=== PATIENT | male | born 1950 | race Caucasian/White ===

== ENCOUNTER → 2019-02-27 09:25 | Outpatient (CLI) | payer MEDICARE, SELFPAY ==
--- NOTE | 2019-02-27 09:30 | CDU_ITS ---
Reason For Study: Numbness, Tingling Rt. Velocities/BP Lt. Velocities/BP Prox CCA 68.2/12.1 cm/sec. Prox CCA 147.7/22.6 cm/sec. Mid CCA 64.3/18.6 cm/sec. Mid CCA 119.2/31.4 cm/sec. Dist CCA 60.4/22.6 cm/sec. Dist CCA 58.1/16.3 cm/sec. Prox ICA 52.6/16 cm/sec. Prox ICA 54.4/16.3 cm/sec. Mid ICA 78.6/31.7 cm/sec. Mid ICA 66.7/24.9 cm/sec. Dist ICA 79.9/31.7 cm/sec. Dist ICA 61.8/22.5 cm/sec. Rt. ICA/CCA = 1.2. Lt. ICA/CCA = 0.6. Prox ECA 86.5/12.1 cm/sec. Prox ECA 91.9/24.3 cm/sec. Rt. Vert. 45.6/19.2 cm/sec. Lt. Vert. 36/14.2 cm/sec. Right Extracranial There is intimal thickening but no significant atherosclerotic plaque noted in the right common carotid artery. There is homogeneous, smooth atherosclerotic plaque noted in the right internal carotid artery. There is no significant atherosclerotic plaque noted in the right external carotid artery. Antegrade flow is noted in the right vertebral artery. Left Extracranial There is intimal thickening but no significant atherosclerotic plaque noted in the left common carotid artery. There is heterogeneous, irregular atherosclerotic plaque noted in the left internal carotid artery. There is intimal thickening but no significant atherosclerotic plaque noted in the left external carotid artery. Antegrade flow is noted in the left vertebral artery. Procedure Carotid Duplex [id number]. Exam performed in department. Interpretation Summary Mild (<50%) stenosis right extracranial internal carotid. Mild (<50%) stenosis left extracranial internal carotid. Flow within the vertebral arteries is antegrade bilaterally. Ordering Physician: Amy Epps Referring Physician: Amy Epps Performed By: Elenita Arias RVT
--- NOTE | 2019-02-27 10:23 | MRI_ITS ---
STUDY: MRI BRAIN WITHOUT CONTRAST REASON FOR EXAM: Male, 68 years old. left facial numbness TECHNIQUE: Standardized multiplanar fat and water weighted pulse sequences were obtained. COMPARISON: None. FINDINGS: Normal size of the ventricles and extra-axial spaces for the patient's age. There are a limited number of small white matter hyperintensities, distributed throughout the deep white matter tracts of the cerebral hemispheres, consistent with mild chronic white matter ischemic changes. Normal bilateral basal ganglia. Normal thalami. There is no extra-axial fluid accumulation. Normal flow voids within the major intracranial circulation suggesting patency by spin echo criteria. Normal sella turcica, pituitary gland, infundibular stalk, optic chiasm and hypothalamus. Normal tectal plate and pineal gland. Normal midbrain, kayla and medulla. Normal cerebellum. Normal basal cisterns. Normal bilateral temporal bones. Normal bilateral internal auditory canals. No demonstrated orbital abnormality, within the constraints of a routine brain study. There is complete opacification of the left frontal sinus and left anterior ethmoid air cells. Normal calvarium and skull base. Normal visualized soft tissue structures. Normal visualized upper cervical spine. MRI/Brain without Contrast IMPRESSION: No acute infarct. Complete opacification of the left frontal sinus and left anterior ethmoid air cells. Mild involutional changes of the brain, as described above. Electronically Signed: Americo Mehta, at 14:14 EST Tel , Service support ,
--- NOTE | 2019-02-27 10:23 | MRI_ITS ---
STUDY: MRA OF THE HEAD WITHOUT CONTRAST REASON FOR EXAM: Male, 68 years old. numbness/tingling L side of face TECHNIQUE: 3-D [id number] (TOF) imaging was performed with MIPs. The study was performed unenhanced. COMPARISON: MRI of the brain dated February 27, 2019 FINDINGS: Normal bilateral petrous carotid arteries. Normal right cavernous carotid artery with a normal supraclinoid bifurcation. Normal left cavernous carotid artery with a normal supraclinoid bifurcation. Normal right A1 segments of the anterior cerebral artery. Normal left A1 segments of the anterior cerebral artery. Normal intact anterior communicating artery (ACOM). Normal bilateral A2 segments of the anterior cerebral arteries. Normal right M1 and M2 segments of the middle cerebral arteries, with a normal M1 bifurcation. Normal left M1 and M2 segments of the middle cerebral arteries, with a normal M1 bifurcation. There is non-visualization of the right posterior communicating artery (PCOM). Normal left posterior communicating artery (PCOM). Normal bilateral vertebral arteries. Normal basilar artery with a normal basilar bifurcation. The visualized bilateral superior cerebellar (SCA) arteries are normal. Normal bilateral P1, P2 and visualized P3 segments of the posterior cerebral arteries. There is no demonstrated aneurysm of the [place]. There is no major vessel occlusion or hemodynamically significant stenosis. MRI/MRA Head ONLY without Contrast IMPRESSION: Negative MRA of the head Electronically Signed: Stevie Coy MD at 23:52 EST , Service support ,
== END ==
LOC: CVS 09:27
PROVIDERS: Family Provider Internal Medicine; PCP Internal Medicine; Referring Provider Internal Medicine; Visit Provider Internal Medicine
DX: R20.0 Anesthesia of skin (principal)
CPT/HCPCS: 70544; 70551; 93880

== ENCOUNTER 2020-04-16 19:21 | Emergency (ER) | payer MEDICARE, SELFPAY ==
[2020-04-16] VITALS (9 sets, daily range): BP systolic 128–152; BP diastolic 67–93; PULSE 77–90; RESP 14–23; TEMP 36.6–36.8; O2SAT 94–98; BMI 25.1; BMI 24.5
--- NOTE | 2020-04-16 19:51 | CT_ITS ---
We are attempting to reach an attending provider to discuss findings. An addendum with communication details will be sent when the communication is complete. HISTORY: Mandible surgery on 04/07/2020. Pain and swelling and fever. Comparison study is a carotid duplex ultrasound from February 27, 2019. Technique: Following the uneventful administration of 100 ML of Isovue-370 contiguous helical images were obtained from the ascending thoracic aorta through the [place]. 2-D reformats. 332 images. Findings: Sternal wires. Mediastinal clips. Right arm metallic lead likely PICC. Lung apices are clear. Bony alignment within the cervical spine demonstrates minimal degenerative malalignment. Vertebral body height is preserved. Multilevel degenerative disc disease. Facet arthropathy. Prevertebral and paraspinal soft tissues are normal. The mandible is intact. Dentition is poor. The thyroid, left submandibular gland, and left parotid gland are normal. The right submandibular gland is enlarged and hyperemic. The right parotid gland is hyperemic. Abscesses are present within the right face. Extending from the level of the right submandibular gland, cranially to the level of the uvula, there are abscesses on both superficial and deep sides of the mandible. The right tonsillar oropharynx and nasopharyngeal abscess measures 6.2 x 3.3 x 8.8 cm. There are loculations within this abscess. It displaces the nasopharyngeal airway, narrowing the nasopharyngeal airway. The epiglottis is not thickened, but it is deviated to the left due to the inflammation. Inflammatory changes generally anterior to the right common carotid and internal carotid artery. The abscesses displace branches of the right external carotid artery. No gas within the abscesses is yet perceived. Paranasal sinuses are clear. Mastoid air cells are free of disease. Orbits and globes are normal. Some adenopathy is present on the right. Flow is present within the aortic arch with some atherosclerotic plaque at the origin of the right brachiocephalic and left subclavian arteries. Flow is present throughout the right CCA, ICA, and ECA. Atherosclerotic plaque is present with both calcification and soft plaque at the left carotid bulb contributing to less than a 20% stenosis. The left ICA remains widely patent in the brain. Intracranially both ICAs give rise to ACAs and MCAs. There patent. Both vertebral arteries remain patent within the neck into the skull to form the basilar artery. The basilar artery remains patent to the posterior cerebral arteries. CT/Soft Tissue Neck WITH Contrast IMPRESSION: Inflammatory change within the right neck. Greater than 6.2 x 3.3 x 8.8 cm right neck abscess. Inflammatory change to the right submandibular gland as well as the right parotid gland with the abscesses extending from the subcutaneous tissues to the nasopharynx abutting the uvula and the epiglottis. The nasopharyngeal airway is displaced and narrowed due to this abscess. Individualized dose optimization techniques were used for this CT. at 2204 Reported and signed by: Chucho Bernstein MD Electronically Signed: Chucho Bernstein MD at 22:03 EST Tel , Service support ,
[2020-04-16] MEDS: Ondansetron 4 MG/2 ML Vial IV (20:12)
[2020-04-16] MEDS: Morphine 4 MG/ML Syringe IV (20:12)
[2020-04-16 20:26] LABS: Absolute Lymphocyte Count 0.74 X10^3/uL (0.83-4.51); Absolute Neutrophil Count 12.4 X10^3/uL (2.0-7.7); Basophil# 0.02 X10^3/uL; Basophil% 0.1 % (0-1); Hemoglobin 12.2 g/dL (13.0-16.5); Lymphocyte # 0.74 X10^3/ul (4.0); Lymphocyte % 5.3 % (19-41); Mean Corp Hgb Conc 33.9 g/dL (32-36); Mean Corpuscular Hgb 31.7 pg (27.0-32.0); Mean Corpuscular Volume 93.5 fL (80-94); Mean Platelet Vol. 9.6 fl (6.2-12.0); Monocyte# 0.81 X10^3/uL; Monocyte% 5.8 % (0-10); NRBC Flagged by Analyzer 0 % (0-5); Platelet Count 245 K/mm3 (150-450); RBC Distribution Width CV 13.2 % (11.6-14.6); RBC Distribution Width SD 45.3 fl (35.1-43.9); Red Blood Count 3.85 M/mm3 (4.6-6.2); White Blood Count 14.1 K/mm3 (4.4-11.0)
[2020-04-16 20:32] LABS: Bacteria 0 SEEN /hpf (None Seen); Mucous, Urine 0 SEEN /hpf (<or=2+); Squamous Epithelial Cells - UA 0 SEEN /hpf (0-5)
[2020-04-16 20:37] LABS: Color, Urine Amber (Yellow); Glucose, Dipstick Normal (Normal); Ketone-Dipstick 5 mg/dl (Negative); Leukocyte Esterase-Dipstick Negative /ul (Negative); Nitrite-Dipstick Negative (Negative); Occult Blood-Urine 10 /ul (Negative); Protein-Dipstick 30 mg/dl (Negative); Urine Bilirubin Dipstick Negative (Negative); Urine Clarity Clear (Clear); Urine Urobilinogen 4 mg/dl (Normal); Urine pH 6.5 (5.0 - 8.0)
[2020-04-16 20:44] LABS: International Normalized Ratio 1.1; Prothrombin Time (Protime)PT. 13.8 SECONDS (11.7-14.9)
[2020-04-16 20:46] LABS: Partial Thromboplast Time 40.5 Seconds (24.1-36.2)
[2020-04-16 20:47] LABS: Red Blood Cells-Urine 0-5 SEEN /hpf (0-5); White Blood Cells 0-5 SEEN /hpf (0-5)
[2020-04-16] MEDS: Ceftriaxone 1 GM/50 ML BAG IV (20:49)
[2020-04-16 20:52] LABS: ALB/GLOB Ratio 0.5 RATIO (0.9-2.4); AST(SGOT) 63 U/L (15-37); Alanine Aminotransfer ALT/SGPT 82 U/L (16-61); Albumin, Serum 2.4 g/dL (3.2-5.0); Alkaline Phosphatase 384 U/L (45-117); Anion Gap 7 (5-15); BUN 8 mg/dL (7-18); BUN/Creat Ratio 10.7 RATIO (10-20); Calcium,Total 8.3 mg/dL (8.5-10.1); Chloride 97 mmol/L (98-107); Creatinine, Serum 0.75 mg/dL (0.70-1.30); EST Glomerular Filtration Rate 109 mL/min (>60); Est Glom Filt Rate - Afr Amer 132 mL/min (>60); Estimated Creatinine Clearance 68.74 ml/min; Globulin 4.8 g/dL (2.2-4.2); Glucose 114 mg/dL (74-106); Potassium 3.8 mmol/L (3.5-5.1); Protein, Total 7.2 g/dL (6.4-8.2); Sodium Level 130 mmol/L (136-145)
[2020-04-16 20:53] LABS: Lactic Acid 1.2 mmol/L (0.4-1.9)
--- NOTE | 2020-04-16 21:15 | ED.DCSUM_ITS ---
- ER Visit Summary Date of Service: 04/16/20 Chief Complaint: Fever History of Present Illness: The patient is a [address] Juares. He had a tooth pulled from the right side of his mandible 9 days ago at the [facility] by Dr. Ferrari for an abscess. He was discharged on clindamycin. He reports that he just developed a fever today at 4 PM. He also reports that he has had swelling to the right side of his mandible again. He was able to eat yesterday and over the past few hours the pain is gotten worse and the swelling has gotten worse. Patient describes a sharp pain is 10 of 10 at worst and 7-10 currently. Is worsened by eating or even opening his mouth. Is relieved by nothing. He had a fever to 101.9 degrees and chills. Patient complains he has chest pain that began tonight. It was 4-10 at worst and is pain-free currently. This lasted a few minutes. Physical Examination: Vitals: Stable. Afebrile. General: Well-nourished and well-developed. Head: Normocephalic atraumatic. Dental: Significant swelling of the right mandible that is tender to palpation. There is no erythema or palpable abscess externally. Patient has trismus and I am unable to visualize intraorally at all. I cannot tell which tooth a pulled or if there is an abscess that is amenable to drainage. Neck: Supple, no lymphadenopathy. No JVD. Cardiovascular: Regular rate and rhythm. No murmurs. Respiratory: No respiratory distress. Clear to auscultation bilaterally. Abdominal: Soft, nontender, nondistended, normal bowel sounds. No guarding, rebound, or peritoneal signs. Back: Nontender. Extremities: Nontender, no edema. Skin: Normal color, no rash. Neurologic: Alert and oriented ?3. Cranial nerves II through XII are intact. Normal strength and sensation. Psych: Normal affect. Test Results: CBC shows a white count of 14.1 with an H&H of 12.2 and 36.0, 7 neutrophils 80, lymphocytes 5. Chem-7 shows a sodium 130, chloride 97, glucose 114, calcium of 8.3. LFTs show a total bili of 1.9 with an alk phos of 384, ALT of 82, AST of 63, albumin 2.4, globulin 4.8. PTT is 40.5. Troponin is negative. Lactic acid is 1.2. UA is negative. Clinical Impression(s) from Imaging Studies Soft Tissue Neck CT 04/16/20 19:51 IMPRESSION: Inflammatory change within the right neck. Greater than 6.2 x 3.3 x 8.8 cm right neck abscess. Inflammatory change to the right submandibular gland as well as the right parotid gland with the abscesses extending from the subcutaneous tissues to the nasopharynx abutting the uvula and the epiglottis. The nasopharyngeal airway is displaced and narrowed due to this abscess. Individualized dose optimization techniques were used for this CT. at 2204 Reported and signed by: Chucho Bernstein MD Electronically Signed: Chucho Bernstein MD at 22:03 EST Tel , Service support , Chest X-Ray 04/16/20 21:20 IMPRESSION: No acute cardiopulmonary disease. at 2137 Reported and signed by: Chucho Bernstein MD Electronically Signed: Chucho Bernstein MD at 21:36 EST Tel , Service support , Emergency Department Course and Treatment: Patient had an IV placed. Is given morphine and Zofran IV. He is resting more comfortably. Has been on clindamycin through a PICC line as an outpatient. He is allergic to penicillin. Is given Rocephin and Flagyl IV. He is resting more comfortably. The patient was discussed with Dr. Syed. Unfortunately he is out of town. The patient was discussed with Dr. Christianson, and medical doctor nuclear medicine at [facility], who is concerned about transferring the patient with an unstable airway. This is a legitimate concern and unfortunately there is no possibility of air transport due to weather. The patient is not a candidate for intubation in the emergency department. He has trismus only allowing him to open his mouth approximately 1 cm. The patient was discussed with Dr. James Melgoza and Dr. Roman. He will be taken to the operating room for intubation. He was nasotracheal intubated without difficulty. On arrival back to emergency department the patient is resting comfortably. He was started on a fentanyl and propofol drip. Treatment Plan: Ultimately the patient needs to be transferred to [facility] for further treatment of this abscess and had this drained there 9 days ago. He will come back up to the emergency department when his airway is controlled and will be sedated here. I spoke with Dr. Christianson again and he is excepted the patient. However, the [facility] is at high census. Because of this I contacted [facility]. They do not have any beds. I contacted [facility]. They do not have any beds. Disposition: Pending Impression: 1. Right mandibular abscess. 2. Rakesh's angina. 3. Critical care time 33 minutes. 4. Intubation by ENT in operating room. This note was generated with [employer] dictation software. It may contain incorrect words, spelling, and punctuation that were not noted in review of the chart prior to signing ED Disposition - Plan for ED Patient: Referrals: Alison Pelletier MD [Primary Care Provider] -
--- NOTE | 2020-04-16 21:20 | RAD_ITS ---
HISTORY: FEVER OF 89, Tquot;MORE LETHARGICTquot; PER SISTER. MANDIBLE SURGERY 04/07, NOW HAVING TROUBLE SWALLOWING EXAM: XR Chest 1 View: COMPARISON: None FINDINGS: # of images incl. paperwork: 1 Peripherally inserted right central venous catheter terminates superimposed over the anticipated location of the SVC, near the level of the right main bronchus. Sternal wires and mediastinal clips. Pulmonary hypoexpansion. No focal airspace disease is perceived Heart is not enlarged. No acute osseous pathology perceived. Pulmonary vascularity is distinct. No effusions. RAD/Chest 1 View (Portable) IMPRESSION: No acute cardiopulmonary disease. at 2137 Reported and signed by: Chucho Bernstein MD Electronically Signed: Chucho Bernstein MD at 21:36 EST Tel , Service support ,
[2020-04-16] MEDS: metroNIDAZOLE 500 MG/100 ML BAG 100 MG IV (21:43)
[2020-04-16] MEDS: Lidocaine 4% 5 ML Ampul 1 ML INHALATION (23:25)
[2020-04-16] MEDS: Lidocaine 4% 50 ML Bottle (23:58)
[2020-04-17] VITALS (9 sets, daily range): BP systolic 137–146; BP diastolic 84–103; PULSE 74–110; RESP 12–16; TEMP 36.7–36.8; O2SAT 99–100
--- NOTE | 2020-04-17 00:21 | OP.PCM_ITS ---
Report of Operation Date of Procedure: 04/17/20 Pre-Operative Diagnosis: upper airway obstruction. deep neck space abscess. trismus Post-Operative Diagnosis: same Surgery/Procedure Performed:: Awake fiberoptic nasotracheal intubation Type of Anesthesia:: Local MAC Anesthesiologist: Sommer Roman Estimated Blood Loss (mL): none Description of Procedure: Patient was taken to the operating room on 04/17/2020. He was given a 4% lidocaine nebulizer. Next, the left nostril was decongested with Afrin nasal spray. I then placed Codman's in his nose with topical 4% lidocaine. Once the nose was numb I serially dilated his left nasal cavity with nasal trumpets. Next I passed a fiberoptic scope through the nose. There was significant obstruction at the level of the oropharynx. I was able to sneak by this obstruction down to the level of the epiglottis where there was no obstruction. I then placed the scope through the cords and into the trachea. This was confi rmed by visualizing tracheal rings and the analilia. I then passed the endotracheal tube over the fiberoptic scope and into the trachea. Position was confirmed with the scope. The scope was then removed. The patient was then given propofol by anesthesia and he was hooked to the circuit. Immediate CO2 was visualized on the monitor. The tube was secured to the nose. He was then removed from the operating room brought back to the emergency room in stable condition blood loss none replacement none. Sponge and instrument count were correct at the end of the procedure.
[2020-04-17] MEDS: Propofol 10MG/Ml 1,000 MG/100 ML Bottle 4.5 MG CONT INF (00:45)
--- NOTE | 2020-04-17 00:55 | ED.RN ---
AT 0030 PT AGITATED WHEN STIMULATED. FENTANYL DRIP INITIATED AND SOFT BILATERAL WRIST RESTRAINTS APPLIED.
[2020-04-17 01:50] LABS: Base Excess 1 mmol/L (-2 to +2); Bicarbonate 25.6 mmol/L (22-26); Blood Gas Specimen Type ART; FI02 30; Mode AC; O2 Delivery Device Adult Vent; PEEP 5; PO2 91 mmHG (75-100); RR 14; SITE R Brach; SO2 97 % (95-99); Total Carbon Dioxide 27 mmol/L; Vt 450; pCO2 41.3 mmHg (35-45)
== END 2020-04-17 02:20 | disposition short-term general hospital (02) ==
PROVIDERS: Emergency Medicine; Otolaryngology; Emergency Provider Emergency Medicine; PCP Internal Medicine
PROC: (CPT 31500; principal; 2020-04-16 23:00)
DX: K12.2 Cellulitis and abscess of mouth (principal); M27.2 Inflammatory conditions of jaws; J98.8 Other specified respiratory disorders; I10 Essential (primary) hypertension; I25.10 Atherosclerotic heart disease of native coronary artery without angina pectoris; E78.00 Pure hypercholesterolemia, unspecified; Z86.73 Personal history of transient ischemic attack (TIA), and cerebral infarction without residual deficits; Z95.1 Presence of aortocoronary bypass graft; Z79.82 Long term (current) use of aspirin; Z79.899 Other long term (current) drug therapy
CPT/HCPCS: 31500; 31720; 36592; 36600; 51702; 70491; 71045; 80053; 81001; 82803; 83605; 84484; 85025; 85610; 85730; 87040; 87077; 87086; 87426; 94002; 94640; 96361; 96365; 96366; 96367; 96368; 96374; 96375; 99285; J7030; J7040; J7120; Q9967; A4216; J2405; J3010

== ENCOUNTER 2020-11-12 11:09 | Inpatient (IN) | payer MEDICARE, SELFPAY ==
[2020-04-16 22:27] VITALS: BMI 24.5
[2020-11-12] VITALS (16 sets, daily range): BP systolic 127–145; BP diastolic 62–101; PULSE 65–81; RESP 15–24; TEMP 36.4–37.2; O2SAT 88–97; BMI 24.2
--- NOTE | 2020-11-12 11:30 | RAD_ITS ---
EXAM DESCRIPTION: PORTABLE AP CHEST CLINICAL HISTORY: 69 years Male, sob sob COMPARISON: Previous chest obtained on 04/16/2020 FINDINGS: Sternotomy sutures are noted in place. The thorax is intact. The heart and mediastinum appear to be within normal limits. The lungs appear to be well areated without evidence of pneumonic consolidation or pleural effusion. RAD/Chest 1 View (Portable) IMPRESSION: No acute pathology. Electronically Signed: Joseph Stokes DO at 12:04 EDT Tel , Service support ,
--- NOTE | 2020-11-12 11:30 | EKG12_ITS ---
Test Reason : Blood Pressure : / mmHG Vent. Rate : 076 BPM Atrial Rate : 076 BPM P-R Int : 172 ms QRS Dur : 080 ms QT Int : 386 ms P-R-T Axes : 049 -07 034 degrees QTc Int : 434 ms Normal sinus rhythm with sinus arrhythmia Septal infarct , age undetermined Nonspecific T wave abnormality Abnormal ECG Confirmed by MANJU MACK, KARLA ([id number]), digital editor JASON NELSON ([id number]) on 11/16/2020 8:58:41 AM Referred By: ROSA Confirmed By:KARLA NUNES MD
--- NOTE | 2020-11-12 11:32 | ED.VIS.DYS ---
HPI History of Present Illness Chief Complaint: Shortness of Breath Informant: patient Onset/Context/Timing Onset: Days (2) Context: gradual Timing: Continuous Quality: Positive for - (sob) Current Severity: Moderate Maximum Severity: Moderate Worsened by: Coughing Relieved by: Nothing Associated Symptoms cough Chest Pain: Positive for Pressure and Tightness Narrative Narrative: 69-year-old male 2 days gradual onset cough, shortness of breath, chest tightness and pressure, 1 bout of diarrhea yesterday, myalgias, subjective fevers and chills at home earlier but does not feel like he has it now, no leg pain or swelling or orthopnea. No palpitations or near syncope/syncope. He had a CABG 20 years ago, he has been taking aspirin since, denies any other antiplatelet or anticoagulant medications. No history of DVT or PE. No history of Covid, and he was vaccinated several months ago. No known contact with anyone sick that he knows of, nor with Covid that he knows of. Patient states that several months ago, he was admitted at [facility] for about 5 weeks because of a dental abscess that went to his brain and his heart. He no longer is on antibiotics. [facility] Medical History (Updated 11/12/20 @ 15:[address] Stewart Lawrence MD) CAD (coronary artery disease) HTN (hypertension) Hyperlipidemia Home Medications aspirin 81 mg PO DAILY 04/16/20 [History Last Taken 11/12/20] omeprazole 20 mg PO DAILY 04/16/20 [History Last Taken 11/12/20] albuterol sulfate 2 puff INHALATION Q4H PRN 11/12/20 [History Last Taken 11/11/20] amlodipine 5 mg PO DAILY 11/12/20 [History Last Taken 11/11/20] dextromethorphan-guaifenesin [Coricidin HBP Chest Trevor-Cough] 2 tab-cap PO Q6H PRN 11/12/20 [History Last Taken 11/11/20] metoprolol tartrate 25 mg PO BID 11/12/20 [History Last Taken 11/12/20] Allergy/AdvReac Type Severity Reaction Status Date / Time Sulfa (Sulfonamide Allergy Rash Verified 11/12/20 11:09 Antibiotics) Surgical History History of cholecystectomy Hx of CABG Social History Smoking Status: Never smoker ROS ROS ED Constitutional Constitutional ED: Reports body ache(s), chills, fever(s) and malaise Eyes Eyes: Denies change in vision or diplopia ENT ENT ED: Denies rhinorrhea or sore throat Cardiovascular Cardiovascular: Reports as per HPI and chest pain; Denies palpitations Respiratory/Chest Respiratory/Chest: Reports as per HPI, cough and dyspnea Gastrointestinal Gastrointestinal: Reports diarrhea and other Details: Diffuse abdominal soreness with coughing only. Vomited once yesterday after taking some cough medication. Otherwise no nausea today. Genitourinary Genitourinary ED: Denies dysuria or hematuria Musculoskeletal Musculoskeletal: Reports myalgias; Denies back pain or neck pain Integumentary Denies abscess or rash Neurologic Neurologic: Denies headache(s), paresthesias or weakness Psychiatric Psychiatric: Denies anxiety or suicidal thoughts EXAM Physical Exam Const Vital Signs: 11/12/20 11:10 11/12/20 11:22 11/12/20 11:29 Temperature 97.5 F L 97.5 F L Temperature Source Temporal Temporal Pulse Rate 77 72 Respiratory Rate 19 H 24 H Respiratory Effort Labored Accessory Muscle Use Respiratory Depth Normal Respiratory Pattern Normal Blood Pressure 142/101 H 145/85 H Blood Pressure Mean 114 105 Pulse Ox 95 94 Oxygen Delivery Method Room Air Room Air Room Air 11/12/20 11:45 11/12/20 12:06 11/12/20 12:15 Temperature 97.5 F L 98.7 F Temperature Source Temporal Oral Pulse Rate 79 81 Respiratory Rate 20 H 22 H Respiratory Effort Respiratory Depth Respiratory Pattern Normal Blood Pressure 134/93 H Blood Pressure Mean 106 Pulse Ox 96 96 Oxygen Delivery Method Room Air Room Air 11/12/20 13:16 11/12/20 14:33 11/12/20 15:00 Temperature 98.2 F Temperature Source Oral Pulse Rate 73 74 80 Respiratory Rate 15 16 16 Respiratory Effort Respiratory Depth Respiratory Pattern Blood Pressure 137/77 H 134/90 H Blood Pressure Mean 97 104 Pulse Ox 93 95 94 Oxygen Delivery Method Room Air Room Air Positive well nourished and well developed General Appearance ED: well developed and NAD HEENT Reports moist mucous membranes normocephalic and atraumatic Eyes PERRL and EOMs intact bilaterally Neck full ROM and supple Resp normal respiratory effort and clear to auscultation bilaterally Resp Narrative: Transmitted upper airway sounds, clear after coughing with clear lungs afterwards. Mildly tachypneic. Cardio regular rate, regular rhythm and no murmurs Rate: Negative for tachycardic GI non-tender and non-distended Auscultation: normoactive bowel sounds Palpation: soft Back/Spine no CVA tenderness General Back: other FROM Extremity normal to inspection, no calf tenderness and no pedal edema General Extremety ED: Negative for edema, pulses abnormal or tenderness General Extremity: Negative for edema or pulses abnormal Neuro oriented x3, CN's II-XII intact bilaterally and no sensory deficits noted Sensorium / Orientation: awake and alert Motor Exam: strength 5/5 throughout Skin no rashes or lesions noted and no wounds MDM MDM MDM Narrative Medical decision making narrative: Patient felt better after albuterol/duo nebulizer treatment, however was hypoxic with just getting out of bed; he was 88% on room air upon standing up, and then with a few steps he was at 85% on room air became very dyspneic. His work-up shows a leukocytosis but he has a normal lactate and a normal chest x-ray. EKG and high-sensitivity troponin are unremarkable. Concern is for infection here given his symptoms, he was vaccinated against Covid and his rapid is negative, D-dimer was obtained because his normal chest x-ray and hypoxemia, it was significantly elevated so he was sent for CT angiography which showed no infiltrate or pulmonary embolus. My concern again is for lower respiratory tract infection, so he will be started on antibiotics and admitted since he is having an oxygen requirement. Lab Data Attestation: I reviewed the patient's lab results. Labs: Laboratory Results - last 24 hr 11/12/20 11/12/20 11/12/20 11:32 11:32 11:32 WBC 15.7 H RBC 4.83 Hgb 15.0 Hct 45.7 MCV 94.6 H MCH 31.1 MCHC 32.8 RDW Std Deviation 47.1 H RDW Coeff of Domitila 13.5 Plt Count 148 L MPV 10.0 Immature Gran % (Auto) 0.600 Neut % (Auto) 88.4 H Lymph % (Auto) 5.9 L [place] % (Auto) 4.7 Eos % (Auto) 0.1 Baso % (Auto) 0.3 Absolute Neuts (auto) 13.9 H Absolute Lymphs (auto) 0.92 Nucleated RBC % 0 D-Dimer Quant (PE/DVT) Sodium 138 Potassium 4.1 Chloride 105 Carbon Dioxide 25.0 Anion Gap 8 BUN 11 Creatinine 0.86 Estim Creat Clear Calc 79.93 Est GFR (MDRD) Af Amer 113 Est GFR (MDRD) Non-Af 93 BUN/Creatinine Ratio 12.8 Glucose 139 H Lactic Acid 1.8 Calcium 9.1 Total Bilirubin 2.00 H AST 21 ALT 24 Alkaline Phosphatase 125 H Troponin I High Sens 8.2 Total Protein 8.2 Albumin 4.1 Globulin 4.1 Albumin/Globulin Ratio 1.0 Urine Color Urine Clarity Urine pH Ur Specific [place] Urine Protein Urine Glucose (UA) Urine Ketones Urine Occult Blood Urine Nitrite Urine Bilirubin Urine Urobilinogen Ur Leukocyte Esterase Urine RBC Urine WBC Ur Squamous Epith Cells Urine Bacteria Urine Mucus 11/12/20 11/12/20 12:55 14:05 WBC RBC Hgb Hct MCV MCH MCHC RDW Std Deviation RDW Coeff of Domitila Plt Count MPV Immature Gran % (Auto) Neut % (Auto) Lymph % (Auto) [place] % (Auto) Eos % (Auto) Baso % (Auto) Absolute Neuts (auto) Absolute Lymphs (auto) Nucleated RBC % D-Dimer Quant (PE/DVT) 1.52 H* Sodium Potassium Chloride Carbon Dioxide Anion Gap BUN Creatinine Estim Creat Clear Calc Est GFR (MDRD) Af Amer Est GFR (MDRD) Non-Af BUN/Creatinine Ratio Glucose Lactic Acid Calcium Total Bilirubin AST ALT Alkaline Phosphatase Troponin I High Sens Total Protein Albumin Globulin Albumin/Globulin Ratio Urine Color Yellow Urine Clarity Clear Urine pH 6.0 Ur Specific [place] 1.010 Urine Protein Negative Urine Glucose (UA) Normal Urine Ketones 5 H Urine Occult Blood 10 H Urine Nitrite Negative Urine Bilirubin Negative Urine Urobilinogen Normal Ur Leukocyte Esterase Negative Urine RBC 0 SEEN Urine WBC 0 SEEN Ur Squamous Epith Cells 0 SEEN Urine Bacteria 0 SEEN Urine Mucus 0 SEEN Radiography Chest X-Ray - ED: 1 View, Read by ED Physician and No Acute Disease Diagnostic Testing: Radiology Impression Chest X-Ray 11/12/20 11:30 IMPRESSION: No acute pathology. Electronically Signed: Joseph Stokes DO at 12:04 EDT Tel , Service support , Chest CTA 11/12/20 14:45 IMPRESSION: Normal CTA chest examination, without a demonstrated pulmonary embolism or arterial dissection. Electronically Signed: Héctor Whatley MD at 15:34 EDT Tel , Service support , EKG Initial EKG: Attestation: I personally reviewed and interpreted this EKG as follows: Interpretation: No Acute Injury Pattern and Sinus Arrythmia Discharge Plan Dx/Rx/DC Orders Clinical Impression: Acute lower respiratory tract infection, Hypoxemia Disposition Disposition: Acute Care [facility]
[2020-11-12 11:48] LABS: Absolute Lymphocyte Count 0.92 X10^3/uL (0.83-4.51); Absolute Neutrophil Count 13.9 X10^3/uL (2.0-7.7); Basophil# 0.05 X10^3/uL; Basophil% 0.3 % (0-1); Eosinophil# 0.01 X10^3/uL; Eosinophils% 0.1 % (0-5); Hematocrit 45.7 % (40-54); Lymphocyte # 0.92 X10^3/ul (0.83-4.51); Lymphocyte % 5.9 % (19-41); Mean Corp Hgb Conc 32.8 g/dL (32-36); Mean Corpuscular Hgb 31.1 pg (27.0-32.0); Mean Corpuscular Volume 94.6 fL (80-94); Monocyte# 0.74 X10^3/uL; Monocyte% 4.7 % (0-10); NRBC Flagged by Analyzer 0 % (0-5); Neutrophil # 13.86 X10^3/uL (2.7-7.7); Neutrophil % 88.4 % (47-70); Platelet Count 148 K/mm3 (150-450); RBC Distribution Width CV 13.5 % (11.6-14.6); RBC Distribution Width SD 47.1 fl (35.1-43.9); Red Blood Count 4.83 M/mm3 (4.6-6.2); White Blood Count 15.7 K/mm3 (4.4-11.0)
[2020-11-12] MEDS: Albuterol 2.5 MG/3 ML VIAL.NEB. INHALATION ×2 (12:06→23:43)
[2020-11-12 12:16] LABS: AST(SGOT) 21 U/L (15-37); Alanine Aminotransfer ALT/SGPT 24 U/L (16-61); Albumin, Serum 4.1 g/dL (3.2-5.0); Alkaline Phosphatase 125 U/L (45-117); Anion Gap 8 (5-15); BUN 11 mg/dL (7-18); BUN/Creat Ratio 12.8 RATIO (10-20); Calcium,Total 9.1 mg/dL (8.5-10.1); Chloride 105 mmol/L (98-107); Creatinine, Serum 0.86 mg/dL (0.70-1.30); EST Glomerular Filtration Rate 93 mL/min (>60); Est Glom Filt Rate - Afr Amer 113 mL/min (>60); Estimated Creatinine Clearance 79.93 ml/min; Globulin 4.1 g/dL (2.2-4.2); Glucose 139 mg/dL (74-106); Potassium 4.1 mmol/L (3.5-5.1); Protein, Total 8.2 g/dL (6.4-8.2); Sodium Level 138 mmol/L (136-145); Troponin-I HS 8.2 pg/mL (3.0-78.5)
[2020-11-12 12:17] LABS: Lactic Acid 1.8 mmol/L (0.4-1.9)
[2020-11-12 13:00] LABS: Bacteria 0 SEEN /hpf (None Seen); Mucous, Urine 0 SEEN /hpf (<or=2+); Red Blood Cells-Urine 0 SEEN /hpf (0-5); Squamous Epithelial Cells - UA 0 SEEN /hpf (0-5); White Blood Cells 0 SEEN /hpf (0-5)
[2020-11-12 13:01] LABS: Color, Urine Yellow (Yellow); Glucose, Dipstick Normal (Normal); Ketone-Dipstick 5 mg/dl (Negative); Leukocyte Esterase-Dipstick Negative /ul (Negative); Nitrite-Dipstick Negative (Negative); Occult Blood-Urine 10 /ul (Negative); Protein-Dipstick Negative (Negative); Urine Bilirubin Dipstick Negative (Negative); Urine Clarity Clear (Clear); Urine Urobilinogen Normal (Normal)
[2020-11-12 14:25] LABS: D-Dimer Quantitative (DVT/PE) 1.52 FEU/ug/m (0.27-0.49)
--- NOTE | 2020-11-12 14:45 | CT_ITS ---
STUDY: CTA CHEST REASON FOR EXAM: Male, 69 years old. elevated d-dimer, sob RADIATION DOSAGE (If Supplied By Facility): CTDIvol = ( 10.62 ) mGy, DLP = ( 391.43 ) mGycm TECHNIQUE: The examination was performed with the intravenous administration of IV 100mL Isovue-370. Post-processing of the angiographic images was performed, with multiplanar reformation and 3D reconstruction. Individualized dose optimization techniques were used for this CT. COMPARISON: Chest x-ray earlier today FINDINGS: Status post median sternotomy. Normal enhancement of the main pulmonary artery and right and left pulmonary arteries. Normal enhancement of the bilateral peripheral pulmonary arteries. There is no demonstrated pulmonary embolism. Normal thoracic aorta and visualized great vessels. There is no demonstrated aortic dissection. Normal heart and pericardium. Normal mediastinum. Normal hilar regions. Normal visualized trachea and bronchi. The lungs are well expanded. Normal pulmonary parenchyma. Normal pleura. Normal chest wall structures. Normal osseous structures. Normal visualized upper abdomen. CT/CTA Chest W/WO Contrast IMPRESSION: Normal CTA chest examination, without a demonstrated pulmonary embolism or arterial dissection. Electronically Signed: Héctor Whatley MD at 15:34 EDT Tel , Service support ,
--- NOTE | 2020-11-12 16:53 | PCM.HP.STD ---
HPI - General General Date of Admission: 11/12/20 HPI Narrative IZZY DU, is a 69 M who presents cough, shortness of breath, fever, chills or malaise of few days duration. He denies any sick contacts or any recent travel. Admits to having chest pressure, exertional dyspnea and easy fatigability. Denies any chest pain per se. Admits to having some myalgias and arthralgias. Had some nausea and a few episodes of vomiting. Received 2 doses of the Pfizer vaccine and Covid testing today was negative. Chest x-ray done was also normal and CT angiogram of the chest was normal as well and without any pulmonary infiltrates. [facility] Medical History (Updated 11/12/20 @ 16:[address] Yas Red MD) CAD (coronary artery disease) Dental abscess HTN (hypertension) Hyperlipidemia Home Medications aspirin 81 mg PO DAILY 04/16/20 [History Last Taken 11/12/20] omeprazole 20 mg PO DAILY 04/16/20 [History Last Taken 11/12/20] albuterol sulfate 2 puff INHALATION Q4H PRN 11/12/20 [History Last Taken 11/11/20] amlodipine 5 mg PO DAILY 11/12/20 [History Last Taken 11/11/20] dextromethorphan-guaifenesin [Coricidin HBP Chest Trevor-Cough] 2 tab-cap PO Q6H PRN 11/12/20 [History Last Taken 11/11/20] metoprolol tartrate 25 mg PO BID 11/12/20 [History Last Taken 11/12/20] Allergy/AdvReac Type Severity Reaction Status Date / Time Sulfa (Sulfonamide Allergy Rash Verified 11/12/20 11:09 Antibiotics) Surgical History History of cholecystectomy Hx of CABG Social History Smoking Status: Never smoker ROS ROS Narrative Admitted to having nausea and vomiting. Denied having any diarrhea. No abdominal pain. All other systems reviewed and essentially negative. Vital Signs Vital Signs Vital Signs: 11/12/20 11:10 11/12/20 11:22 11/12/20 11:29 Temperature 36.4 C L 36.4 C L Temperature Source Temporal Temporal Pulse Rate 77 72 Respiratory Rate 19 H 24 H Respiratory Effort Labored Accessory Muscle Use Respiratory Depth Normal Respiratory Pattern Normal Blood Pressure 142/101 H 145/85 H Blood Pressure Mean 114 105 Pulse Ox 95 94 Oxygen Delivery Method Room Air Room Air Room Air 11/12/20 11:45 11/12/20 12:06 11/12/20 12:15 Temperature 36.4 C L 37.1 C Temperature Source Temporal Oral Pulse Rate 79 81 Respiratory Rate 20 H 22 H Respiratory Effort Respiratory Depth Respiratory Pattern Normal Blood Pressure 134/93 H Blood Pressure Mean 106 Pulse Ox 96 96 Oxygen Delivery Method Room Air Room Air 11/12/20 13:16 11/12/20 14:33 11/12/20 15:00 Temperature 36.8 C Temperature Source Oral Pulse Rate 73 74 80 Respiratory Rate 15 16 16 Respiratory Effort Respiratory Depth Respiratory Pattern Blood Pressure 137/77 H 134/90 H Blood Pressure Mean 97 104 Pulse Ox 93 95 94 Oxygen Delivery Method Room Air Room Air 11/12/20 16:33 Temperature 37.2 C Temperature Source Oral Pulse Rate 79 Respiratory Rate 17 Respiratory Effort Respiratory Depth Respiratory Pattern Blood Pressure 127/72 H Blood Pressure Mean 90 Pulse Ox Oxygen Delivery Method Room Air Weight Weight: 74.5 kg Body Mass Index (BMI) 24.2 Physical Exam Const alert and oriented x3 Constitutional Narrative: Mildly ill-appearing, not not dyspneic at rest General Appearance: cooperative and well kempt Orientation / Consciousness: awake, oriented to person, oriented to place and oriented to time Exam Limitations: no limitations HEENT normocephalic, head/scalp atraumatic and hearing grossly normal bilaterally Head and Scalp: normal to inspection, normocephalic and atraumatic Face and Sinus: normal facial exam Eyes PERRL General Eye: normal appearance of both eyes Neck full ROM Chest Chest: abnormal inspection of the chest and symmetrical chest wall rise Resp normal respiratory effort and normal air movement Effort and Inspection: able to speak in complete sentences Cardio regular rate, regular rhythm and no JVD GI normal to inspection, nondistended, normoactive bowel sounds, soft to palpation and non-tender Palpation: soft Extremity normal to inspection and full ROM General Extremity: normal exam except as noted Skin no rashes or lesions noted and no wounds Neuro oriented x3, CN's II-XII intact bilaterally and moves all extremities Sensorium / Orientation: awake, alert, oriented to person, oriented to place and oriented to time Cranial Nerves: CN normal except as noted Speech: speech normal Psych mental status grossly normal Results Lab / Micro Data Result Diagrams: 11/12/20 11:32 11/12/20 11:32 Labs: Laboratory Results - last 24 hr 11/12/20 11:32: WBC 15.7 H, RBC 4.83, Hgb 15.0, Hct 45.7, MCV 94.6 H, MCH 31.1, MCHC 32.8, RDW Std Deviation 47.1 H, RDW Coeff of Domitila 13.5, Plt Count 148 L, MPV 10.0, Immature Gran % (Auto) 0.600, Neut % (Auto) 88.4 H, Lymph % (Auto) 5.9 L, [place] % (Auto) 4.7, Eos % (Auto) 0.1, Baso % (Auto) 0.3, Absolute Neuts (auto) 13.9 H, Absolute Lymphs (auto) 0.92, Nucleated RBC % 0 11/12/20 11:32: Sodium 138, Potassium 4.1, Chloride 105, Carbon Dioxide 25.0, Anion Gap 8, BUN 11, Creatinine 0.86, Estim Creat Clear Calc 79.93, Est GFR (MDRD) Af Amer 113, Est GFR (MDRD) Non-Af 93, BUN/Creatinine Ratio 12.8, Glucose 139 H, Calcium 9.1, Total Bilirubin 2.00 H, AST 21, ALT 24, Alkaline Phosphatase 125 H, Troponin I High Sens 8.2, Total Protein 8.2, Albumin 4.1, Globulin 4.1, Albumin/Globulin Ratio 1.0 11/12/20 11:32: Lactic Acid 1.8 11/12/20 12:55: Urine Color Yellow, Urine Clarity Clear, Urine pH 6.0, Ur Specific [place] 1.010, Urine Protein Negative, Urine Glucose (UA) Normal, Urine Ketones 5 H, Urine Occult Blood 10 H, Urine Nitrite Negative, Urine Bilirubin Negative, Urine Urobilinogen Normal, Ur Leukocyte Esterase Negative, Urine RBC 0 SEEN, Urine WBC 0 SEEN, Ur Squamous Epith Cells 0 SEEN, Urine Bacteria 0 SEEN, Urine Mucus 0 SEEN 11/12/20 14:05: D-Dimer Quant (PE/DVT) 1.52 H* Micro: Microbiology 08/06/21 11:15 Mucosa - Nose SARS-CoV-2 Antigen (Rapid) - Final Radiology Impression Chest X-Ray 11/12/20 11:30 IMPRESSION: No acute pathology. Electronically Signed: Joseph Stokes DO at 12:04 EDT Tel , Service support , Chest CTA 11/12/20 14:45 IMPRESSION: Normal CTA chest examination, without a demonstrated pulmonary embolism or arterial dissection. Electronically Signed: Héctor Whatley MD at 15:34 EDT Tel , Service support , Assessment & Plan Assessment/Plan (1) Acute lower respiratory tract infection: PLAN: Assessment and plan 1. Lower respiratory tract infection. Chest x-ray and CT scan of the chest normal. COVID-19 negative. Suspect possible acute bacterial bronchitis. Possible viral etiology. Will treat empirically with IV antibiotics. 2. Acute hypoxic respiratory failure. Likely secondary to #1 above. Patient complained of orthopnea. Will check BNP. If elevated will get an echocardiogram. Charges/Coding Visit Charges Inpatient E&M: 34680 Init Hosp L2
[2020-11-12] MEDS: Ondansetron 4 MG/2 ML Vial IV (16:55)
[2020-11-12] MEDS: Acetaminophen 325 MG Tablet 650 MG PO (17:44)
[2020-11-12 18:03] LABS: BNP,B-Type NATRIURETIC PEPTIDE 204.7 pg/mL (0-100)
[2020-11-12] MEDS: Metoprolol Tartrate 25 MG Tablet PO (22:44)
[2020-11-13] VITALS (9 sets, daily range): BP systolic 115–140; BP diastolic 68–82; PULSE 57–72; RESP 12–20; TEMP 36.6–36.8; O2SAT 95–97
[2020-11-13] MEDS: guaiFENesin 600 MG Tablet PO ×2 (00:10→20:29)
[2020-11-13] MEDS: Acetaminophen 325 MG Tablet 650 MG PO (04:32)
[2020-11-13 07:08] LABS: Absolute Lymphocyte Count 0.91 X10^3/uL (0.83-4.51); Absolute Neutrophil Count 3.5 X10^3/uL (2.0-7.7); Basophil# 0.03 X10^3/uL; Basophil% 0.6 % (0-1); Eosinophil# 0.13 X10^3/uL; Eosinophils% 2.5 % (0-5); Hematocrit 40.4 % (40-54); Hemoglobin 12.9 g/dL (13.0-16.5); Lymphocyte # 0.91 X10^3/ul (0.83-4.51); Lymphocyte % 17.7 % (19-41); Mean Corp Hgb Conc 31.9 g/dL (32-36); Mean Corpuscular Hgb 30.9 pg (27.0-32.0); Mean Corpuscular Volume 96.7 fL (80-94); Monocyte# 0.51 X10^3/uL; Monocyte% 9.9 % (0-10); NRBC Flagged by Analyzer 0 % (0-5); Neutrophil # 3.54 X10^3/uL (2.7-7.7); Neutrophil % 68.9 % (47-70); Platelet Count 109 K/mm3 (150-450); RBC Distribution Width CV 13.8 % (11.6-14.6); RBC Distribution Width SD 49.1 fl (35.1-43.9); Red Blood Count 4.18 M/mm3 (4.6-6.2); White Blood Count 5.1 K/mm3 (4.4-11.0)
[2020-11-13 07:28] LABS: ALB/GLOB Ratio 1.1 RATIO (0.9-2.4); AST(SGOT) 38 U/L (15-37); Alanine Aminotransfer ALT/SGPT 28 U/L (16-61); Albumin, Serum 3.4 g/dL (3.2-5.0); Alkaline Phosphatase 108 U/L (45-117); Anion Gap 4 (5-15); BUN 8 mg/dL (7-18); BUN/Creat Ratio 10.6 RATIO (10-20); Calcium,Total 8.2 mg/dL (8.5-10.1); Chloride 109 mmol/L (98-107); Creatinine, Serum 0.76 mg/dL (0.70-1.30); EST Glomerular Filtration Rate 108 mL/min (>60); Est Glom Filt Rate - Afr Amer 131 mL/min (>60); Estimated Creatinine Clearance 68.74 ml/min; Globulin 3.2 g/dL (2.2-4.2); Glucose 113 mg/dL (74-106); Potassium 4.4 mmol/L (3.5-5.1); Protein, Total 6.6 g/dL (6.4-8.2); Sodium Level 140 mmol/L (136-145)
[2020-11-13] MEDS: Aspirin 81 MG TAB.CHEW PO (07:39)
--- NOTE | 2020-11-13 08:07 | ECHOD_ITS ---
Reason For Study: DYSPNEA Procedure This was a 2D Doppler, Color Flow transthoracic echocardiogram. Exam performed portable in patient room. Left Ventricle Normal left ventricle. The estimated ejection fraction is EF 55-60 %. Right Ventricle Normal right ventricle. Atria The left atrium is moderately enlarged. The right atrium is mildly enlarged. Mitral Valve The mitral valve is structurally normal. No prolapse or stenosis seen. Mild (1+) mitral valve insufficiency. Tricuspid Valve Mild focal calcification of the tricuspid valve. Mild tricuspid valve insufficiency. Aortic Valve Aortic sclerosis, no stenosis. Trivial aortic valve insufficiency. Pulmonic Valve The pulmonic valve is not well visualized. Great Vessels Mildly dilated aortic root. Pericardium/Pleural No pericardial effusion. MMode/2D Measurements & Calculations LVIDd: 4.4 cm IVSd: 1.1 cm Ao root diam: 4.1 cm LVIDs: 2.9 cm LVPWd: 0.83 cm RVDd: 4.2 cm FS: 34.3 % LAV(MOD-bp): 52.7 ml LVAd ap4: 22.5 cm2 LVAd ap2: 28.4 cm2 LAV(MOD-bp) Indexed: 27.8 ml/m2 LVLd ap4: 7.4 cm LVLd ap2: 8.0 cm LAV(MOD-sp2): 70.3 ml EDV(MOD-sp4): 57.0 ml EDV(MOD-sp2): 84.3 ml LAV(MOD-sp4): 37.2 ml EDV(sp4-el): 58.0 ml EDV(sp2-el): 86.1 ml LVAs ap4: 11.8 cm2 LVAs ap2: 15.0 cm2 LVLs ap4: 5.9 cm LVLs ap2: 6.4 cm ESV(MOD-sp4): 23.6 ml ESV(MOD-sp2): 29.4 ml ESV(sp4-el): 20.1 ml ESV(sp2-el): 29.7 ml EF(MOD-sp4): 58.6 % EF(MOD-sp2): 65.1 % EF(sp4-el): 65.4 % SV(MOD-sp4): 33.4 ml SV(MOD-sp2): 54.8 ml SV(sp4-el): 38.0 ml LA dimension(2D): 4.4 cm LA A4 area: 14.9 cm2 RA A4 area: 12.7 cm2 Time Measurements MV dec time: 0.23 sec Doppler Measurements & Calculations MV E max darren: 72.5 cm/sec Lat Peak E' Darren: 16.5 cm/sec Med Peak E' Darren: 5.6 cm/sec MV A max darren: 90.7 cm/sec E/E' lat: 4.4 E/E' med: 12.9 MV E/A: 0.80 Ao V2 max: 168.7 cm/sec LV V1 max: 146.6 cm/sec PA V2 max: 157.5 cm/sec Ao max P.4 mmHg LV V1 max P.6 mmHg TR max darren: 247.9 cm/sec TR max P.6 mmHg ECHO/Echo Complete Interpretation Summary The estimated ejection fraction is EF 55-60 %. Grade # I Diastolic Dysfunction Ordering Physician: Dejon Stiles Referring Physician: YU TENA Performed By: Digna Aguila, CHARLIECS, RVT
[2020-11-13] MEDS: Albuterol 2.5 MG/3 ML VIAL.NEB. INHALATION ×2 (09:13→19:15)
[2020-11-13] MEDS: amLODIPine 5 MG Tablet PO (10:44)
[2020-11-13] MEDS: Enoxaparin 40 MG/0.4 ML Syringe SC (10:44)
[2020-11-13] MEDS: Pantoprazole Sodium 20 MG Tablet PO (10:44)
--- NOTE | 2020-11-13 11:58 | CASEMGMT ---
KAROLINA STRONG Assessment: Face to Face with pt for initial transition planning/care coordination assessment. KAROLINA STRONG introduced self and role at [facility], pt voices understanding and consents to assessment. Pt is A/O x4 and answers all questions appropriately at this time. Pt sitting up in chair on RA in no distress. Care providers, pharmacy, and demographics verified/updated. 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 but is unsure of the name and has not seen yet. JUAN ANTONIO Renee Preferred Pharmacy: [facility] Retail Insurance: [employer] Prescription Benefit: yes LW/HPOA: Pt states he has a LW/DPOA. His DPOA is his sister Annie Lazo. He is aware that it is not on file at [facility] and he may bring in to be scanned to his chart. LNOK: Annie Lazo, sister Living Arrangements: Pt lives in a two story house with no steps to enter. Pt states he is I in ADL's and denies concerns at home. Transportation: Pt does not drive by choice for the last 3 years. His family transports him to medical appts and he denies concerns with transportation. DME/HHC/SNF: Pt has a cane and grab bars in the tub. Pt has had a HHC agency from [place] in the past but is unsure of the name. He also has been in [facility] in [place]. Pt states no concerns with going home at time of dc. Pt denies need for any HHC services. 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 He states he leads a very active life. Pt states no further concerns/needs. CM to follow. Advised pt to ask CM if any further question/concerns/needs arise, voices understanding. Pt Goal: Home Plan: Home
--- NOTE | 2020-11-13 12:07 | PN_ITS ---
Documented by User: Jo Nye NP-C 11/13/20 12:17 Subjective Subjective Patient seen and examined. Patient states he is feeling moderately better today however he continues to complain of a severe harsh cough. Patient states his shortness of breath has resolved other than after a harsh coughing fit. Patient states that he is coughing up thin mucus. Patient denies fever chills chest pain. Objective Data Objective Data Vital Signs: Vital Signs Temp Pulse Resp BP Pulse Ox 98.1 F 58 L 12 115/74 95 11/13/20 07:28 11/13/20 10:44 11/13/20 09:14 11/13/20 07:28 11/13/20 07:34 Oxygen Delivery Method Room Air Weight: 164 lb 3.91 oz Body Mass Index (BMI) 24.2 Intake & Output: Intake and Output for Last 24 Hours 11/11/20 11/12/20 11/13/20 23:59 23:59 23:59 Intake Total 1455 / 1455 1240 / 1240 Balance 1455 / 1455 1240 / 1240 Lab / Micro Data Result Diagrams: 11/14/20 04:39 11/13/20 06:52 Labs: Laboratory Results - last 24 hr 11/12/20 11:32: Sodium 138, Potassium 4.1, Chloride 105, Carbon Dioxide 25.0, Anion Gap 8, BUN 11, Creatinine 0.86, Estim Creat Clear Calc 79.93, Est GFR (MDRD) Af Amer 113, Est GFR (MDRD) Non-Af 93, BUN/Creatinine Ratio 12.8, Glucose 139 H, Calcium 9.1, Total Bilirubin 2.00 H, AST 21, ALT 24, Alkaline Phosphatase 125 H, Troponin I High Sens 8.2, Total Protein 8.2, Albumin 4.1, Globulin 4.1, Albumin/Globulin Ratio 1.0 11/12/20 11:32: Lactic Acid 1.8 11/12/20 12:55: Urine Color Yellow, Urine Clarity Clear, Urine pH 6.0, Ur Specific [place] 1.010, Urine Protein Negative, Urine Glucose (UA) Normal, Urine Ketones 5 H, Urine Occult Blood 10 H, Urine Nitrite Negative, Urine Bilirubin Negative, Urine Urobilinogen Normal, Ur Leukocyte Esterase Negative, Urine RBC 0 SEEN, Urine WBC 0 SEEN, Ur Squamous Epith Cells 0 SEEN, Urine Bacteria 0 SEEN, Urine Mucus 0 SEEN 11/12/20 14:05: D-Dimer Quant (PE/DVT) 1.52 H* 11/12/20 17:08: B-Natriuretic Peptide 204.7 H 11/13/20 06:52: Sodium 140, Potassium 4.4, Chloride 109 H, Carbon Dioxide 27.0, Anion Gap 4 L, BUN 8, Creatinine 0.76, Estim Creat Clear Calc 68.74, Est GFR (MDRD) Af Amer 131, Est GFR (MDRD) Non-Af 108, BUN/Creatinine Ratio 10.6, Glucose 113 H, Calcium 8.2 L, Total Bilirubin 0.80, AST 38 H, ALT 28, Alkaline Phosphatase 108, Total Protein 6.6, Albumin 3.4, Globulin 3.2, Albumin/Globulin Ratio 1.1 11/13/20 06:54: WBC 5.1, RBC 4.18 L, Hgb 12.9 L, Hct 40.4, MCV 96.7 H, MCH 30.9, MCHC 31.9 L, RDW Std Deviation 49.1 H, RDW Coeff of Domitila 13.8, Plt Count 109 L, MPV 10.0, Immature Gran % (Auto) 0.400, Neut % (Auto) 68.9, Lymph % (Auto) 17.7 L, [place] % (Auto) 9.9, Eos % (Auto) 2.5, Baso % (Auto) 0.6, Absolute Neuts (auto) 3.5, Absolute Lymphs (auto) 0.91, Nucleated RBC % 0 Micro: Microbiology 11/12/20 12:55 Urine, Clean Catch Urine Culture - Preliminary Culture exhibits no growth. 11/12/20 11:15 Mucosa - Nose SARS-CoV-2 Antigen (Rapid) - Final Radiography Diagnostic Testing: Radiology Impression Chest CTA 11/12/20 14:45 IMPRESSION: Normal CTA chest examination, without a demonstrated pulmonary embolism or arterial dissection. Electronically Signed: Héctor Whatley MD at 15:34 EDT Tel , Service support , Echocardiogram 11/13/20 08:07 Interpretation Summary The estimated ejection fraction is EF 55-60 %. Grade # I Diastolic Dysfunction Ordering Physician: Dejon Stiles Referring Physician: YU TENA Performed By: Digna Aguila, CHARLIECS, RVT Physical Exam Const alert and oriented x3 General Appearance: cooperative HEENT normocephalic and head/scalp atraumatic Eyes conjunctivae normal and no scleral icterus Neck supple and no JVD General: trachea midline Resp normal respiratory effort and normal air movement Auscultation: wheezes expiratory wheezes and throughout Cardio regular rate, regular rhythm, S1 normal heart sound and S2 normal heart sound Rate: bradycardia GI normal to inspection, nondistended, normoactive bowel sounds, soft to palpation and non-tender Extremity normal capillary refill and no clubbing, cyanosis or edema General Extremity: no tenderness to palpation of joints or extremities Skin General Skin Exam: no breakdown and turgor normal Lesions: no lesions Rashes: no rashes Neuro no focal motor deficits and no sensory deficits noted Speech: speech normal Gait (Neuro): normal gait Psych thought process normal, cooperative and affect normal Appearance: appropriate Assessment & Plan Assessment/Plan (1) Acute lower respiratory tract infection: PLAN: 1. Lower respiratory tract infection. -CXR and CT scan of chest normal. -COVID-19 negative. -Due to improvement with antibiotics most likely a bacterial source. Continue ceftriaxone -Continue as needed albuterol nebulizer treatments, Mucinex p.o. Tessalon Perles as needed added due to patient's continued harsh productive cough. -Encourage patient to use incentive spirometry and ambulate as able 2. Acute hypoxic respiratory failure. -Resolved, patient currently on room air pulse ox 94 to 97%. -BNP mildly elevated at 204.7, echocardiogram shows EF 55 to 60% with grade 1 diastolic dysfunction. 3. Hypertension -Stable -Will continue home medication regimen DVT prophylaxis-subcu Lovenox. This patient was seen by RITA Ronquillo under the supervision of Dr. Sitles. Documented by User: Dr. Dejon Stiles MD 11/14/20 12:44 Objective Data Lab / Micro Data Result Diagrams: 11/14/20 04:39 11/13/20 06:52 Charges/Coding Addendum Addendum: Dr. Stiles: I personally reviewed the chart and examined the patient, and agree with the above findings. 69-year-old male presents to the hospital with shortness of kae ath and a cough. CT of the chest was unremarkable, his Covid testing was negative. He was felt that he could have bronchitis therefore started on IV antibiotics as well as treated breathing treatments. Feels slightly better than when he came in today, but still not back to baseline. His BNP was elevated therefore an echo was obtained and pending. Visit Charges Inpatient E&M: 08795 Subs Hosp L2
[2020-11-13] MEDS: Metoprolol Tartrate 25 MG Tablet PO (20:27)
[2020-11-14] VITALS (11 sets, daily range): BP systolic 122–143; BP diastolic 73–78; PULSE 55–71; RESP 12–20; TEMP 36.7–36.9; O2SAT 92–98
[2020-11-14] MEDS: Albuterol 2.5 MG/3 ML VIAL.NEB. INHALATION ×4 (00:35→21:40)
[2020-11-14 06:27] LABS: Absolute Lymphocyte Count 2.02 X10^3/uL (0.83-4.51); Absolute Neutrophil Count 3.1 X10^3/uL (2.0-7.7); Basophil# 0.05 X10^3/uL; Basophil% 0.8 % (0-1); Eosinophil# 0.14 X10^3/uL; Eosinophils% 2.3 % (0-5); Hematocrit 40.7 % (40-54); Hemoglobin 13.3 g/dL (13.0-16.5); Lymphocyte # 2.02 X10^3/ul (0.83-4.51); Mean Corp Hgb Conc 32.7 g/dL (32-36); Mean Corpuscular Hgb 31.4 pg (27.0-32.0); Mean Platelet Vol. 10.5 fl (6.2-12.0); Monocyte# 0.75 X10^3/uL; Monocyte% 12.2 % (0-10); NRBC Flagged by Analyzer 0 % (0-5); Neutrophil # 3.14 X10^3/uL (2.7-7.7); Neutrophil % 51.2 % (47-70); Platelet Count 109 K/mm3 (150-450); RBC Distribution Width CV 13.9 % (11.6-14.6); RBC Distribution Width SD 49.2 fl (35.1-43.9); Red Blood Count 4.24 M/mm3 (4.6-6.2); White Blood Count 6.1 K/mm3 (4.4-11.0)
[2020-11-14] MEDS: Metoprolol Tartrate 25 MG Tablet PO ×2 (09:00→21:20)
[2020-11-14] MEDS: Enoxaparin 40 MG/0.4 ML Syringe SC (09:01)
[2020-11-14] MEDS: amLODIPine 5 MG Tablet PO (09:01)
[2020-11-14] MEDS: Aspirin 81 MG TAB.CHEW PO (09:01)
[2020-11-14] MEDS: Pantoprazole Sodium 20 MG Tablet PO (09:01)
--- NOTE | 2020-11-14 11:40 | PCM.PN.HOSP ---
Documented by User: Joseph HITCHCOCK 11/14/20 11:52 Subjective Subjective Patient is a 69-year-old male comfortably resting in bed, alert and orient x3. Patient endorses some yellow/green purulent sputum production and mild cough, denies chest pain, shortness of breath, palpitations, hemoptysis, fever, chills, N/V/D. Objective Data Objective Data Vital Signs: Vital Signs Temp Pulse Resp BP Pulse Ox 98.4 F 71 12 140/74 H 95 11/14/20 08:49 11/14/20 10:08 11/14/20 10:08 11/14/20 08:49 11/14/20 08:49 Oxygen Delivery Method Room Air Weight: 164 lb 3.91 oz Body Mass Index (BMI) 24.2 Intake & Output: Intake and Output for Last 24 Hours 11/12/20 11/13/20 11/14/20 23:59 23:59 23:59 Intake Total 1455 / 1455 2890 / 2890 50 / 50 Balance 1455 / 1455 2890 / 2890 50 / 50 Lab / Micro Data Result Diagrams: 11/14/20 04:39 11/13/20 06:52 Labs: Laboratory Results - last 24 hr 11/14/20 04:39: WBC 6.1, RBC 4.24 L, Hgb 13.3, Hct 40.7, MCV 96.0 H, MCH 31.4, MCHC 32.7, RDW Std Deviation 49.2 H, RDW Coeff of Domitila 13.9, Plt Count 109 L, MPV 10.5, Immature Gran % (Auto) 0.500, Neut % (Auto) 51.2, Lymph % (Auto) 33.0, [place] % (Auto) 12.2 H, Eos % (Auto) 2.3, Baso % (Auto) 0.8, Absolute Neuts (auto) 3.1, Absolute Lymphs (auto) 2.02, Nucleated RBC % 0 Micro: Microbiology 11/12/20 12:55 Urine, Clean Catch Urine Culture - Final Culture exhibits no growth. 11/12/20 11:52 Blood Culture (Wb) - Anticubital Left Blood Culture - Preliminary No growth in 48 hours. 11/12/20 11:32 Blood Culture (Wb) - Anticubital Right Blood Culture - Preliminary No growth in 48 hours. 11/12/20 11:15 Mucosa - Nose SARS-CoV-2 Antigen (Rapid) - Final Physical Exam Const alert, oriented x3 and no apparent distress HEENT head/scalp atraumatic and moist oral mucous membranes Head and Scalp: normocephalic Eyes EOMs intact bilaterally and conjunctivae normal Neck no lymphadenopathy, supple and no JVD Resp normal respiratory effort, no retractions and no use of accessory muscles Cardio regular rate, regular rhythm, no murmurs and no JVD GI normal to inspection, nondistended, normoactive bowel sounds and soft to palpation Extremity normal to inspection, full ROM and no clubbing, cyanosis or edema Skin no rashes or lesions noted, no wounds and skin turgor normal Neuro CN's II-XII intact bilaterally Psych affect normal Assessment & Plan Assessment/Plan (1) Acute lower respiratory tract infection: (2) Hypoxemia: PLAN: Day 3: See subjective. Discharge planning: Patient to be discharged home, no additional home health care or therapy needs identified. 1) acute hypoxic respiratory failure secondary to acute lower respiratory infection Currently satting 95% on room air. Chest x-ray and CT of the chest unremarkable. Echocardiogram completed on 11/17 demonstrated an estimated EF of 55 to 60% and grade 1 diastolic dysfunction. Rapid Covid negative. Blood and urine cultures demonstrate no growth. Patient still endorses mild cough with some yellow/green sputum production, although feels improved from admission. Plan; continue Rocephin and azithromycin, albuterol as needed, Mucinex as needed, Tessalon Perles as needed. 2) HTN Stable, continue home BP regimen. DVT prophylaxis - Lovenox Patient seen by Joseph Teran PA-C, under the supervision of Dr. Stiles. Documented by User: Dr. Dejon Stiles MD 11/14/20 12:51 Objective Data Lab / Micro Data Result Diagrams: 11/14/20 04:39 11/13/20 06:52 Physical Exam Resp Auscultation: rhonchi and wheezes Charges/Coding Addendum Addendum: Dr. Stiles: I personally reviewed the chart and examined the patient, and agree with the above findings. 69-year-old male presents to the hospital with shortness of breath and a cough. CT of the chest was unremarkable, his Covid testing was negative. He was felt that he could have bronchitis therefore started on IV antibiotics as well as treated breathing treatments. Feels slightly better than when he came in today, but still not back to baseline. His BNP was elevated therefore an echo was obtained and pending. 11/14/2020: Feels better today than he did yesterday, still has some short of breath and now he is coughing up thick mucus. Is little bit hesitant to go home today and would like to stay 1 more day to see if the continued antibiotics and breathing treatments help. Echo yesterday was unremarkable. Visit Charges Inpatient E&M: 59438 Subs Hosp L2
--- NOTE | 2020-11-14 14:03 | NURSING ---
Patient ambulated around unit with no 02 and pulse ox ranged from 94-96% .
[2020-11-14] MEDS: guaiFENesin 600 MG Tablet PO ×2 (17:44→21:20)
[2020-11-14] MEDS: Cefdinir 300 MG Capsule PO (21:20)
[2020-11-14] MEDS: MELATONIN 3 MG TABLET PO (23:01)
[2020-11-15] VITALS (12 sets, daily range): BP systolic 120–130; BP diastolic 73–83; PULSE 57–85; RESP 16–18; TEMP 36.4–36.8; O2SAT 91–97
[2020-11-15 07:08] LABS: Absolute Lymphocyte Count 1.97 X10^3/uL (0.83-4.51); Absolute Neutrophil Count 3.1 X10^3/uL (2.0-7.7); Basophil# 0.04 X10^3/uL; Basophil% 0.7 % (0-1); Eosinophils% 3.5 % (0-5); Hematocrit 44.4 % (40-54); Hemoglobin 14.6 g/dL (13.0-16.5); Lymphocyte # 1.97 X10^3/ul (0.83-4.51); Lymphocyte % 34.2 % (19-41); Mean Corp Hgb Conc 32.9 g/dL (32-36); Mean Corpuscular Hgb 31.3 pg (27.0-32.0); Mean Corpuscular Volume 95.1 fL (80-94); Mean Platelet Vol. 9.8 fl (6.2-12.0); Monocyte% 6.9 % (0-10); NRBC Flagged by Analyzer 0 % (0-5); Neutrophil # 3.11 X10^3/uL (2.7-7.7); Platelet Count 130 K/mm3 (150-450); RBC Distribution Width CV 13.8 % (11.6-14.6); RBC Distribution Width SD 48.5 fl (35.1-43.9); Red Blood Count 4.67 M/mm3 (4.6-6.2); White Blood Count 5.8 K/mm3 (4.4-11.0)
[2020-11-15] MEDS: Albuterol 2.5 MG/3 ML VIAL.NEB. INHALATION ×3 (07:28→19:24)
[2020-11-15 07:32] LABS: Anion Gap 7 (5-15); BUN 15 mg/dL (7-18); BUN/Creat Ratio 20.9 RATIO (10-20); Calcium,Total 8.9 mg/dL (8.5-10.1); Chloride 105 mmol/L (98-107); Creatinine, Serum 0.72 mg/dL (0.70-1.30); EST Glomerular Filtration Rate 115 mL/min (>60); Est Glom Filt Rate - Afr Amer 139 mL/min (>60); Estimated Creatinine Clearance 68.74 ml/min; Glucose 102 mg/dL (74-106); Sodium Level 139 mmol/L (136-145)
[2020-11-15] MEDS: Aspirin 81 MG TAB.CHEW PO (08:39)
[2020-11-15] MEDS: Metoprolol Tartrate 25 MG Tablet PO ×2 (08:39→21:34)
[2020-11-15] MEDS: amLODIPine 5 MG Tablet PO (08:40)
[2020-11-15] MEDS: Enoxaparin 40 MG/0.4 ML Syringe SC (08:40)
[2020-11-15] MEDS: Pantoprazole Sodium 20 MG Tablet PO (08:40)
[2020-11-15] MEDS: Cefdinir 300 MG Capsule PO ×2 (08:42→21:34)
[2020-11-15] MEDS: guaiFENesin 600 MG Tablet PO ×2 (08:43→21:44)
[2020-11-15] MEDS: Acetaminophen 325 MG Tablet 650 MG PO ×3 (08:43→21:44)
[2020-11-15] MEDS: Azithromycin 250 MG Tablet 500 MG PO (08:43)
[2020-11-15] MEDS: Menthol/Lanolin/Calamine/Znox 113 GM Tube 1 APPLIC TOPICAL ×2 (11:06→22:18)
[2020-11-15] MEDS: 0.9% Saline Lock 10 ML Syringe IV ×2 (11:07→14:43)
--- NOTE | 2020-11-15 12:51 | PCM.PN.HOSP ---
Documented by User: Joseph HITCHCOCK 11/15/20 12:59 Subjective Subjective Patient is a 69-year-old male comfortably resting in bed, alert and orient x3. Patient still complains of ongoing shortness of breath with minimal movement, although reports this has improved from admission. Patient also endorses continuing to cough thick yellow sputum. Denies chest pain, palpitations, hemoptysis, fever, chills, N/V/D. Objective Data Objective Data Vital Signs: Vital Signs Temp Pulse Resp BP Pulse Ox 98 F 58 L 16 121/73 H 97 11/15/20 12:08 11/15/20 12:08 11/15/20 12:08 11/15/20 12:08 11/15/20 12:08 Oxygen Delivery Method Room Air Weight: 164 lb 3.91 oz Body Mass Index (BMI) 24.2 Intake & Output: Intake and Output for Last 24 Hours 11/13/20 11/14/20 11/15/20 23:59 23:59 23:59 Intake Total 2890 / 2890 1705 / 1705 350 / 350 Balance 2890 / 2890 1705 / 1705 350 / 350 Lab / Micro Data Result Diagrams: 11/15/20 06:54 11/15/20 06:54 Labs: Laboratory Results - last 24 hr 11/15/20 06:54: WBC 5.8, RBC 4.67, Hgb 14.6, Hct 44.4, MCV 95.1 H, MCH 31.3, MCHC 32.9, RDW Std Deviation 48.5 H, RDW Coeff of Domitila 13.8, Plt Count 130 L, MPV 9.8, Immature Gran % (Auto) 0.700, Neut % (Auto) 54.0, Lymph % (Auto) 34.2, [place] % (Auto) 6.9, Eos % (Auto) 3.5, Baso % (Auto) 0.7, Absolute Neuts (auto) 3.1, Absolute Lymphs (auto) 1.97, Nucleated RBC % 0 11/15/20 06:54: Sodium 139, Potassium 4.0, Chloride 105, Carbon Dioxide 27.0, Anion Gap 7, BUN 15, Creatinine 0.72, Estim Creat Clear Calc 68.74, Est GFR (MDRD) Af Amer 139, Est GFR (MDRD) Non-Af 115, BUN/Creatinine Ratio 20.9 H, Glucose 102, Calcium 8.9 Micro: Microbiology 11/12/20 12:55 Urine, Clean Catch Urine Culture - Final Culture exhibits no growth. 11/12/20 11:52 Blood Culture (Wb) - Anticubital Left Blood Culture - Preliminary No growth in 48 hours. 11/12/20 11:32 Blood Culture (Wb) - Anticubital Right Blood Culture - Preliminary No growth in 48 hours. 11/12/20 11:15 Mucosa - Nose SARS-CoV-2 Antigen (Rapid) - Final Physical Exam Const alert, oriented x3 and no apparent distress HEENT head/scalp atraumatic and moist oral mucous membranes Head and Scalp: normocephalic Eyes EOMs intact bilaterally and conjunctivae normal Neck no lymphadenopathy, supple and no JVD Resp no use of accessory muscles Effort and Inspection: tachypneic, respiratory distress and labored Auscultation: rhonchi and wheezes Cardio regular rate, regular rhythm, no murmurs and no JVD GI normal to inspection, nondistended, normoactive bowel sounds, soft to palpation and non-tender Extremity normal to inspection, full ROM and no clubbing, cyanosis or edema Skin no rashes or lesions noted, no wounds and skin turgor normal Neuro CN's II-XII intact bilaterally Psych affect normal Assessment & Plan Assessment/Plan (1) Acute lower respiratory tract infection: (2) Hypoxemia: PLAN: Day 4: See subjective. Discharge planning: Patient to be discharged home, no additional home health care or therapy needs identified. 1) acute hypoxic respiratory failure secondary to acute lower respiratory infection Currently satting 97% on room air. Chest x-ray and CT of the chest unremarkable. Echocardiogram completed on 11/17 demonstrated an estimated EF of 55 to 60% and grade 1 diastolic dysfunction. Rapid Covid negative. Blood and urine cultures demonstrate no growth. Patient still endorses shortness of breath with minimal exertion and yellow/green sputum production. Patient does not feel stable enough to return home. Plan; continue cefdinir and azithromycin, initiate Solu-Medrol 40 mg IV every 8, albuterol as needed, Mucinex as needed. 2) HTN Stable, continue home BP regimen. DVT prophylaxis - Lovenox Patient seen by Joseph Teran PA-C, under the supervision of Dr. Kotsonis. Documented by User: Dr. Dejon Stiles MD 11/15/20 14:32 Objective Data Lab / Micro Data Result Diagrams: 11/15/20 06:54 11/15/20 06:54 Physical Exam Resp Auscultation: rhonchi and wheezes expiratory wheezes and throughout Charges/Coding Addendum Addendum: Dr. Stiles: I personally reviewed the chart and examined the patient, and agree with the above findings. 69-year-old male presents to the hospital with shortness of breath and a cough. CT of the chest was unremarkable, his Covid testing was negative. He was felt that he could have bronchitis therefore started on IV antibiotics as well as treated breathing treatments. Feels slightly better than when he came in today, but still not back to baseline. His BNP was elevated therefore an echo was obtained and pending. 11/14/2020: Feels better today than he did yesterday, still has some short of breath and now he is coughing up thick mucus. Is little bit hesitant to go home today and would like to stay 1 more day to see if the continued antibiotics and breathing treatments help. Echo yesterday was unremarkable. 11/15/2020: Doing well, still feels unsure about going home since he lives alone. Part of his anxiety has to do with the fact that he had to be in another hospital a few months ago for about 5 weeks secondary to a brain abscess. He was able to bring up some sputum therefore will send this for culture to better identify any contributing organism. Continue with antibiotics for now, given his continued shortness of breath issues will place him on steroids and continue the breathing treatments as well. Visit Charges Inpatient E&M: 00109 Subs Hosp L2
[2020-11-15] MEDS: MELATONIN 3 MG TABLET PO (21:34)
[2020-11-16 03:00] VITALS: O2SAT 98
[2020-11-16 03:10] VITALS: BP 142/102; PULSE 74; RESP 16; TEMP 36.6; O2SAT 98
[2020-11-16] MEDS: Acetaminophen 325 MG Tablet 650 MG PO (04:26)
[2020-11-16 07:04] LABS: Absolute Lymphocyte Count 1.34 X10^3/uL (0.83-4.51); Absolute Neutrophil Count 10.2 X10^3/uL (2.0-7.7); Basophil# 0.01 X10^3/uL; Basophil% 0.1 % (0-1); Hematocrit 43.5 % (40-54); Hemoglobin 14.6 g/dL (13.0-16.5); Lymphocyte # 1.34 X10^3/ul (0.83-4.51); Mean Corp Hgb Conc 33.6 g/dL (32-36); Mean Corpuscular Hgb 31.5 pg (27.0-32.0); Mean Corpuscular Volume 93.8 fL (80-94); Mean Platelet Vol. 9.6 fl (6.2-12.0); Monocyte# 0.62 X10^3/uL; Monocyte% 5.1 % (0-10); NRBC Flagged by Analyzer 0 % (0-5); Neutrophil # 10.16 X10^3/uL (2.7-7.7); Neutrophil % 83.3 % (47-70); Platelet Count 153 K/mm3 (150-450); RBC Distribution Width CV 13.3 % (11.6-14.6); RBC Distribution Width SD 45.2 fl (35.1-43.9); Red Blood Count 4.64 M/mm3 (4.6-6.2); White Blood Count 12.2 K/mm3 (4.4-11.0)
[2020-11-16 07:23] VITALS: PULSE 79; RESP 16; O2SAT 97
[2020-11-16] MEDS: Albuterol 2.5 MG/3 ML VIAL.NEB. INHALATION (07:23)
[2020-11-16 07:26] LABS: Anion Gap 6 (5-15); BUN 21 mg/dL (7-18); BUN/Creat Ratio 28.5 RATIO (10-20); Calcium,Total 9.5 mg/dL (8.5-10.1); Chloride 105 mmol/L (98-107); Creatinine, Serum 0.74 mg/dL (0.70-1.30); EST Glomerular Filtration Rate 112 mL/min (>60); Est Glom Filt Rate - Afr Amer 135 mL/min (>60); Estimated Creatinine Clearance 68.74 ml/min; Glucose 107 mg/dL (74-106); Potassium 4.8 mmol/L (3.5-5.1); Sodium Level 137 mmol/L (136-145)
[2020-11-16 07:44] VITALS: PULSE 77
[2020-11-16] MEDS: amLODIPine 5 MG Tablet PO (07:44)
[2020-11-16] MEDS: Metoprolol Tartrate 25 MG Tablet PO (07:44)
[2020-11-16] MEDS: Cefdinir 300 MG Capsule PO (07:44)
[2020-11-16] MEDS: Azithromycin 250 MG Tablet 500 MG PO (07:44)
[2020-11-16] MEDS: Aspirin 81 MG TAB.CHEW PO (07:44)
[2020-11-16] MEDS: Enoxaparin 40 MG/0.4 ML Syringe SC (07:45)
[2020-11-16] MEDS: Pantoprazole Sodium 20 MG Tablet PO (07:45)
[2020-11-16] MEDS: Menthol/Lanolin/Calamine/Znox 113 GM Tube 1 APPLIC TOPICAL (07:45)
[2020-11-16] MEDS: guaiFENesin 600 MG Tablet PO (07:52)
[2020-11-16 08:00] VITALS: O2SAT 95
[2020-11-16 08:28] VITALS: BP 146/88; PULSE 77; RESP 16; TEMP 36.8; O2SAT 94
--- NOTE | 2020-11-16 09:42 | PCM.DC ---
Discharge Instructions Diet Discharge Diet: No restrictions Activity Discharge Activity: Return to Normal Activity Dressing / Incision Call your doctor if you observe: Fever of 101 or Higher, Shortness of breath, Dizziness, Swelling in the ankles, Chest pain and Increased palpitations (irregular heartbeat) Follow Up Care Test Results: Test results from this visit will be discussed in further detail at your follow-up appointment, if applicable. Discharge Plan Admission Admit Date/Time: 11/12/20 16:49 Attending Provider: Dejon Stiles Primary Care Provider: Alison Pelletier Instructions Patient Instructions: Acute Bronchitis Discharge Orders/Prescriptions Prescriptions: New cefdinir 300 mg Capsule 300 mg PO Q12 Qty: 12 RF: 0 prednisone 20 mg tablet 40 mg PO DAILY Qty: 14 RF: 0 albuterol sulfate 90 mcg/actuation HFA aerosol inhaler 1 inh inhalation Q6H PRN (Reason: shortness of breath or wheezing) Qty: 6.7 RF: 0 Continued aspirin 81 MG tablet,chewable 81 mg PO DAILY RF: 0 omeprazole 20 MG capsule,delayed release(DR/EC) 20 mg PO DAILY RF: 0 Coricidin HBP Chest Trevor-Cough 10-200 mg Capsule 2 tab-cap PO Q6H PRN (Reason: CONGESTION/COUGH) RF: 0 amlodipine 5 mg tablet 5 mg PO DAILY RF: 0 albuterol sulfate 90 mcg/actuation Hfa Aerosol Inhaler 2 puff INHALATION Q4H PRN (Reason: SOB) RF: 0 metoprolol tartrate 25 mg tablet 25 mg PO BID RF: 0 Referrals / Follow Up: Alison Pelletier MD [Primary Care Provider] - Within 1 Week Disposition Disposition (needs filled in before D/C Order can be placed): Home, Self Care
--- NOTE | 2020-11-16 11:03 | DS.PCM_ITS ---
Documented by User: Joseph HITCHCOCK 11/16/20 11:12 Providers Date of Admission: 11/12/20 Primary Care Physician: Dr. Alison Pelletier MD Reason For Visit: LRI, HYPOXEMIA Diagnosis Discharge Diagnosis (1) Acute lower respiratory tract infection: Status: Acute Code(s): J22 - Unspecified acute lower respiratory infection (2) Hypoxemia: Status: Acute Code(s): R09.02 - Hypoxemia Medications at Discharge Home Medications aspirin 81 mg PO DAILY 04/16/20 omeprazole 20 mg PO DAILY 04/16/20 Coricidin HBP Chest Trevor-Cough 2 tab-cap PO Q6H PRN 11/12/20 albuterol sulfate 2 puff INHALATION Q4H PRN 11/12/20 amlodipine 5 mg PO DAILY 11/12/20 metoprolol tartrate 25 mg PO BID 11/12/20 albuterol sulfate 1 inh INHALATION Q6H PRN #6.7 g 11/16/20 cefdinir 300 mg PO Q12 #12 cap 11/16/20 prednisone 40 mg PO DAILY #14 tab 11/16/20 Hospital Course Procedures Transthoracic echo Summary of Care Provided Minutes Spent on Discharge: 35 Hospital Course: Disposition: Patient to be discharged home, no additional home health care or therapy needs identified. 1) acute hypoxic respiratory failure secondary to acute lower respiratory infection Currently satting 94% on room air. Chest x-ray and CT of the chest unremarkable. Echocardiogram completed on 11/17 demonstrated an estimated EF of 55 to 60% and grade 1 diastolic dysfunction. Rapid Covid negative. Blood and urine cultures demonstrate no growth. Patient reports improvement in regards to shortness of breath and wheezing, feels stable enough to return home. Plan; cefdinir continued on discharge 300 mg p.o. every 12 hours x6 days, prednisone 40 mg p.o. daily x7 days initiated on discharge, albuterol as needed initiated at discharge. 2) HTN Stable, continue home BP regimen. Patient seen by Joseph Teran PA-C, under the supervision of Dr. Stiles. Physical Exam Narrative Patient is a 69-year-old male comfortably resting in bed, alert and oriented x3. Patient reports improvement of shortness of breath and wheezing from admission and feel stable enough to return home. Denies chest pain, palpitations, hemoptysis, purulent sputum production, fever, chills, N/V/D. Const alert, oriented x3 and no apparent distress HEENT normocephalic, head/scalp atraumatic and hearing grossly normal bilaterally Eyes EOMs intact bilaterally and conjunctivae normal Neck no lymphadenopathy, supple and no JVD Resp normal respiratory effort, no retractions and no use of accessory muscles Auscultation: diminished lung sounds Cardio regular rate, regular rhythm, no murmurs and no JVD GI normal to inspection, nondistended, normoactive bowel sounds, soft to palpation and non-tender Extremity normal to inspection, full ROM and no clubbing, cyanosis or edema Skin no rashes or lesions noted, no wounds and skin turgor normal Neuro CN's II-XII intact bilaterally Psych affect normal Medical Records Data Medical Nutrition Assessment Dietitian: Nutrition Therapy Diagnosis Start: 11/15/20 14:39 Freq: Status: Active Protocol: Document 11/15/20 14:50 SLA (Rec: 11/15/20 14:50 SLA [id number]) Nutrition Malnutrition Evidence of Malnutrition Exists No Intake Problem Inadequate Oral Intake Etiology related to acute illness and still getting appetite back from bacterial infection ( brain/heart) Apr-May 2020 Signs/Symptoms as evidenced by 6.2% wt loss x 6-7 months and overall poor po intake since then. Status Active Problem Recommendation Dietitian Recommendations/Changes Will continue liberal Regular diet Will provide chocolate ensure enlive w/ meals for increased nutrition if consumed Weight / BMI Weight Weight: 164 lb 3.91 oz Body Mass Index (BMI) 24.2 ABG / Lab / Microbiology Data Result Diagrams: 11/16/20 06:55 11/16/20 06:55 Laboratory: Laboratory Results - last 24 hr 11/16/20 06:55: WBC 12.2 H, RBC 4.64, Hgb 14.6, Hct 43.5, MCV 93.8, MCH 31.5, M CHC 33.6, RDW Std Deviation 45.2 H, RDW Coeff of Domitila 13.3, Plt Count 153, MPV 9.6, Immature Gran % (Auto) 0.500, Neut % (Auto) 83.3 H, Lymph % (Auto) 11.0 L, [place] % (Auto) 5.1, Eos % (Auto) 0.0, Baso % (Auto) 0.1, Absolute Neuts (auto) 10.2 H, Absolute Lymphs (auto) 1.34, Nucleated RBC % 0 11/16/20 06:55: Sodium 137, Potassium 4.8, Chloride 105, Carbon Dioxide 26.0, Anion Gap 6, BUN 21 H, Creatinine 0.74, Estim Creat Clear Calc 68.74, Est GFR (MDRD) Af Amer 135, Est GFR (MDRD) Non-Af 112, BUN/Creatinine Ratio 28.5 H, Gluc ose 107 H, Calcium 9.5 Microbiology: Microbiology 11/15/20 11:10 Sputum, Expectorated/Coughed Gram Stain - Final 11/15/20 11:10 Sputum, Expectorated/Coughed Respiratory Culture - Preliminary Appears to be normal respiratory alon. Further studies to follow. 11/12/20 12:55 Urine, Clean Catch Urine Culture - Final Culture exhibits no growth. 11/12/20 11:52 Blood Culture (Wb) - Anticubital Left Blood Culture - Preliminary No growth in 48 hours. 11/12/20 11:32 Blood Culture (Wb) - Anticubital Right Blood Culture - Preliminary No growth in 48 hours. 11/12/20 11:15 Mucosa - Nose SARS-CoV-2 Antigen (Rapid) - Final D/C Instructions Discharge Diet: No restrictions Call your doctor if you observe: Fever of 101 or Higher, Shortness of breath, Dizziness, Swelling in the ankles, Chest pain and Increased palpitations (irregular heartbeat) Meaningful Use Info Meaningful Use Diagnoses (Choose all that apply): None applicable Discharge Plan Admission Admit Date/Time: 11/12/20 16:49 Attending Provider: Dejon Stiles Primary Care Provider: Alison Pelletier Instructions Patient Instructions: Acute Bronchitis Discharge Orders/Prescriptions Prescriptions: New cefdinir 300 mg Capsule 300 mg PO Q12 Qty: 12 RF: 0 prednisone 20 mg tablet 40 mg PO DAILY Qty: 14 RF: 0 albuterol sulfate 90 mcg/actuation HFA aerosol inhaler 1 inh inhalation Q6H PRN (Reason: shortness of breath or wheezing) Qty: 6.7 RF: 0 Continued aspirin 81 MG tablet,chewable 81 mg PO DAILY RF: 0 omeprazole 20 MG capsule,delayed release(DR/EC) 20 mg PO DAILY RF: 0 Coricidin HBP Chest Trevor-Cough 10-200 mg Capsule 2 tab-cap PO Q6H PRN (Reason: CONGESTION/COUGH) RF: 0 amlodipine 5 mg tablet 5 mg PO DAILY RF: 0 albuterol sulfate 90 mcg/actuation Hfa Aerosol Inhaler 2 puff INHALATION Q4H PRN (Reason: SOB) RF: 0 metoprolol tartrate 25 mg tablet 25 mg PO BID RF: 0 Referrals / Follow Up: Alison Pelletier MD [Primary Care Provider] - Within 1 Week Disposition Disposition (needs filled in before D/C Order can be placed): Home, Self Care Documented by User: Dr. Dejon Stiles MD 11/16/20 14:04 Providers Date of Admission: 11/12/20 Reason For Visit: LRI, HYPOXEMIA Medications at Discharge Home Medications aspirin 81 mg PO DAILY 04/16/20 omeprazole 20 mg PO DAILY 04/16/20 Coricidin HBP Chest Trevor-Cough 2 tab-cap PO Q6H PRN 11/12/20 albuterol sulfate 2 puff INHALATION Q4H PRN 11/12/20 amlodipine 5 mg PO DAILY 11/12/20 metoprolol tartrate 25 mg PO BID 11/12/20 albuterol sulfate 1 inh INHALATION Q6H PRN #6.7 g 11/16/20 cefdinir 300 mg PO Q12 #12 cap 11/16/20 prednisone 40 mg PO DAILY #14 tab 11/16/20 ABG / Lab / Microbiology Data Result Diagrams: 11/16/20 06:55 11/16/20 06:55 Discharge Plan Admission Admit Date/Time: 11/12/20 16:49 Attending Provider: Dejon Stiles Primary Care Provider: Alison Pelletier Instructions Patient Instructions: Acute Bronchitis Discharge Orders/Prescriptions Prescriptions: New cefdinir 300 mg Capsule 300 mg PO Q12 Qty: 12 RF: 0 prednisone 20 mg tablet 40 mg PO DAILY Qty: 14 RF: 0 albuterol sulfate 90 mcg/actuation HFA aerosol inhaler 1 inh inhalation Q6H PRN (Reason: shortness of breath or wheezing) Qty: 6.7 RF: 0 Continued aspirin 81 MG tablet,chewable 81 mg PO DAILY RF: 0 omeprazole 20 MG capsule,delayed release(DR/EC) 20 mg PO DAILY RF: 0 Coricidin HBP Chest Trevor-Cough 10-200 mg Capsule 2 tab-cap PO Q6H PRN (Reason: CONGESTION/COUGH) RF: 0 amlodipine 5 mg tablet 5 mg PO DAILY RF: 0 albuterol sulfate 90 mcg/actuation Hfa Aerosol Inhaler 2 puff INHALATION Q4H PRN (Reason: SOB) RF: 0 metoprolol tartrate 25 mg tablet 25 mg PO BID RF: 0 Referrals / Follow Up: Alison Pelletier MD [Primary Care Provider] - Within 1 Week Disposition Disposition (needs filled in before D/C Order can be placed): Home, Self Care Charges/Coding Addendum Addendum: Dr. Stiles: I personally reviewed the chart and examined the patient, and agree with the above findings. 69-year-old male presents to the hospital with shortness of breath and a cough. CT of the chest was unremarkable, his Covid testing was negative. He was felt that he could have bronchitis therefore started on IV antibiotics as well as treated breathing treatments. Feels slightly better than when he came in today, but still not back to baseline. His BNP was elevated therefore an echo was obtained and pending. 11/14/2020: Feels better today than he did yesterday, still has some short of breath and now he is coughing up thick mucus. Is little bit hesitant to go home today and would like to stay 1 more day to see if the continued antibiotics and breathing treatments help. Echo yesterday was unremarkable. 11/15/2020: Doing well, still feels unsure about going home since he lives alone. Part of his anxiety has to do with the fact that he had to be in another hospital a few months ago for about 5 weeks secondary to a brain abscess. He was able to bring up some sputum therefore will send this for culture to better identify any contributing organism. Continue with antibiotics for now, given his continued shortness of breath issues will place him on steroids and continue the breathing treatments as well. 11/16/2020: Feels much better today with the addition of steroids. Says that he no longer feels significantly short of breath. Did not require any oxygen on discharge therefore we will continue with prednisone for 7 days as well as antibiotics. Will need to follow-up with his PCP as an outpatient. Also given prescription for albuterol. Discussed with him the plan for discharge today and he expressed understanding risk benefits of going home today would like to go home today. Visit Charges Inpatient E&M: [id number] Disch Hosp
== END 2020-11-16 11:27 | disposition home or self-care (01) | DRG 202 ==
LOC: ED 15:51 → MS3 16:16
PROVIDERS: Physician Assistant; Admitting Provider Internal Medicine; Emergency Provider Emergency Medicine; PCP Internal Medicine; Visit Provider Family Medicine
DX: J20.9 Acute bronchitis, unspecified (principal); J96.01 Acute respiratory failure with hypoxia; E78.5 Hyperlipidemia, unspecified; I10 Essential (primary) hypertension; I25.10 Atherosclerotic heart disease of native coronary artery without angina pectoris; Z20.822 Contact with and (suspected) exposure to COVID-19; Z79.82 Long term (current) use of aspirin; Z95.1 Presence of aortocoronary bypass graft; Z79.899 Other long term (current) drug therapy
CPT/HCPCS: 36415; 71045; 71275; 80048; 80053; 81001; 83605; 83880; 84484; 85025; 85379; 87040; 87070; 87086; 87205; 87426; 93005; 93306; 94640; 99251; 99285; J7030; J7040; Q9967; A4216; G0463; J0696; J2405

== ENCOUNTER 2021-01-25 15:37 | Emergency (ER) | payer MEDICARE, SELFPAY ==
[2021-01-25 15:41] VITALS: BP 148/104; PULSE 80; RESP 20; TEMP 36.9; O2SAT 96; BMI 25.2
[2021-01-25 16:36] VITALS: BP 138/84
[2021-01-25] MEDS: 0.9% Normal Saline 1,000 ML 999 ML IV (17:19)
[2021-01-25] MEDS: dexAMETHasone 10 MG/ML Vial IV (17:20)
[2021-01-25 17:33] LABS: Absolute Lymphocyte Count 0.58 X10^3/uL (0.83-4.51); Absolute Neutrophil Count 3.2 X10^3/uL (2.0-7.7); Basophil# 0.02 X10^3/uL; Basophil% 0.5 % (0-1); Eosinophil# 0.01 X10^3/uL; Eosinophils% 0.2 % (0-5); Hematocrit 41.9 % (40-54); Hemoglobin 13.9 g/dL (13.0-16.5); Lymphocyte # 0.58 X10^3/ul (0.83-4.51); Lymphocyte % 13.3 % (19-41); Mean Corp Hgb Conc 33.2 g/dL (32-36); Mean Corpuscular Hgb 31.4 pg (27.0-32.0); Mean Corpuscular Volume 94.8 fL (80-94); Mean Platelet Vol. 9.8 fl (6.2-12.0); Monocyte# 0.59 X10^3/uL; Monocyte% 13.5 % (0-10); NRBC Flagged by Analyzer 0 % (0-5); Neutrophil # 3.15 X10^3/uL (2.7-7.7); POSITIVE COUNT YES; POSITIVE DIFFERENTIAL YES; Platelet Count 94 K/mm3 (150-450); RBC Distribution Width CV 13.9 % (11.6-14.6); RBC Distribution Width SD 48.7 fl (35.1-43.9); Red Blood Count 4.42 M/mm3 (4.6-6.2); White Blood Count 4.4 K/mm3 (4.4-11.0)
[2021-01-25 17:34] LABS: Differential Indicated SCAN CRITERIA MET
[2021-01-25 17:51] LABS: Anion Gap 8 (5-15); BUN 15 mg/dL (7-18); BUN/Creat Ratio 16.1 RATIO (10-20); Calcium,Total 8.4 mg/dL (8.5-10.1); Chloride 100 mmol/L (98-107); Creatinine, Serum 0.93 mg/dL (0.70-1.30); EST Glomerular Filtration Rate 85 mL/min (>60); Est Glom Filt Rate - Afr Amer 103 mL/min (>60); Estimated Creatinine Clearance 75.22 ml/min; Glucose 90 mg/dL (74-106); Magnesium 2.1 mg/dL (1.6-2.6); Sodium Level 134 mmol/L (136-145); Troponin-I HS 6 pg/mL (3.0-78.0)
[2021-01-25 18:12] LABS: Platelet Estimate MOD DEC (ADEQ)
[2021-01-25 18:13] LABS: Anisocytosis RARE; Macrocytosis RARE; Red Cell Morphology N CHROM NORMAL (NORM C&C)
--- NOTE | 2021-01-25 19:00 | RAD_ITS ---
INDICATION: cough EXAMINATION/TECHNIQUE: X-RAY - XR Chest 1 View COMPARISON: 11/12/2020. FINDINGS: The lungs are clear. Sternal cerclage wires and vascular clips are present from a prior sternotomy and coronary artery bypass graft procedure (CABG). No pleural effusion or pneumothorax. No acute osseous abnormalities. RAD/Chest 1 View (Portable) IMPRESSION: No acute radiographic abnormalities. Electronically Signed: Chadd Hoover MD at 19:38 EDT Tel , Service support ,
--- NOTE | 2021-01-25 20:46 | EDS_ITS ---
HPI History of Present Illness Chief Complaint: Cough Narrative Narrative: Patient is a 70-year-old male who reports has had 4 to 5 days of nasal congestion sore throat and cough. He also reports has had loose stool/diarrhea. He reports with his constellation of symptoms he is concerned he may have Covid and secondary to this presents for evaluation [facility] Medical History Asthma CAD (coronary artery disease) Dental abscess Depression Former smoker GERD (gastroesophageal reflux disease) Hepatitis HTN (hypertension) Hyperlipidemia TIA (transient ischemic attack) Home Medications aspirin 81 mg PO DAILY 04/16/20 [History Last Taken 11/12/20] omeprazole 20 mg PO DAILY 04/16/20 [History Last Taken 11/12/20] Coricidin HBP Chest Trevor-Cough 2 tab-cap PO Q6H PRN 11/12/20 [History Last Taken 11/11/20] albuterol sulfate 2 puff INHALATION Q4H PRN 11/12/20 [History Last Taken 11/11/20] amlodipine 5 mg PO DAILY 11/12/20 [History Last Taken 11/11/20] metoprolol tartrate 25 mg PO BID 11/12/20 [History Last Taken 11/12/20] albuterol sulfate 1 inh INHALATION Q6H PRN #6.7 g 11/16/20 [Rx Last Taken Unknow n] cefdinir 300 mg PO Q12 #12 cap 11/16/20 [Rx Last Taken Unknown] prednisone 40 mg PO DAILY #14 tab 11/16/20 [Rx Last Taken Unknown] dexamethasone [Decadron] 6 mg PO DAILY #10 tab 01/25/21 [Rx Last Taken Unknown] Allergy/AdvReac Type Severity Reaction Status Date / Time Sulfa (Sulfonamide Allergy Rash Verified 01/25/21 15:38 Antibiotics) Surgical History (Updated 11/12/20 @ 17:23 by Rupa Zamudio) History of cholecystectomy Hx of CABG Social History (Updated 11/12/20 @ 17:28 by Karrie Rascon) Smoking Status: Never smoker ROS ROS ED Constitutional Constitutional ED: Reports chills, fever(s) and subjective ENT ENT ED: Reports rhinorrhea and sore throat Cardiovascular Cardiovascular: Denies chest pain Respiratory/Chest Respiratory/Chest: Reports cough and dyspnea Gastrointestinal Gastrointestinal: Reports diarrhea; Denies abdominal pain, nausea or vomiting Genitourinary Genitourinary ED: Denies dysuria Musculoskeletal Musculoskeletal: Reports myalgias Integumentary Denies rash Neurologic Neurologic: Denies headache(s) Hematologic/Lymphatic Hematologic/Lymphatic: Denies easy bleeding or easy bruising EXAM Physical Exam Const Vital Signs: 01/25/21 15:41 01/25/21 16:34 01/25/21 16:36 Temperature 98.4 F Temperature Source Temporal Pulse Rate 80 Respiratory Rate 20 H Respiratory Effort Normal Respiratory Depth Normal Respiratory Pattern Normal Blood Pressure 148/104 H 138/84 H Blood Pressure Mean 118 102 Pulse Ox 96 Oxygen Delivery Method Room Air Positive well nourished and well developed General Appearance ED: well developed HEENT Reports moist mucous membranes HEENT Narrative: Cobblestoning the posterior pharynx consistent with sinus drainage but no airway edema or compromise Eyes PERRL and EOMs intact bilaterally Neck supple and no JVD Neck Narrative: Positive anterior cervical lymphadenopathy Chest Wall palpation of chest normal Resp Resp Narrative: Breath sounds are diminished throughout with faint wheezes and rhonchi in the bilateral bases but no signs of distress Cardio regular rate and regular rhythm GI non-tender and non-distended GI Narrative: Abdomen is soft nontender nondistended with hyperactive bowel sounds no voluntary guarding or rigidity or pulsatile mass Palpation: soft Extremity normal to inspection Extremity Narrative: No asymmetric edema no pitting edema negative Homans' sign bilaterally Neuro oriented x3 and CN's II-XII intact bilaterally Sensorium / Orientation: alert Motor Exam: strength 5/5 throughout Psych mental status grossly normal Skin no rashes or lesions noted MDM MDM MDM Narrative Medical decision making narrative: Patient presented to the ER satting in the mid 90s on room air with no acute respiratory distress change. His constellation of symptoms is concerning for Covid so a Covid swab and basic blood work were obtained. Covid swab is positive but other labs reveal no acute finding. Chest x-ray also reveals no acute pneumonia. On reevaluation he is resting comfortably and remains in no acute respiratory distress. Therefore patient is safe for discharge symptomatic care Lab Data Attestation: I reviewed the patient's lab results. Labs: Laboratory Results - last 24 hr 01/25/21 01/25/21 17:22 17:22 WBC 4.4 RBC 4.42 L Hgb 13.9 Hct 41.9 MCV 94.8 H MCH 31.4 MCHC 33.2 RDW Std Deviation 48.7 H RDW Coeff of Domitila 13.9 Plt Count 94 L MPV 9.8 Immature Gran % (Auto) 0.500 Neut % (Auto) 72.0 H Lymph % (Auto) 13.3 L [place] % (Auto) 13.5 H Eos % (Auto) 0.2 Baso % (Auto) 0.5 Absolute Neuts (auto) 3.2 Absolute Lymphs (auto) 0.58 L Nucleated RBC % 0 Differential Comment SEE COMMENT Platelet Estimate MOD DEC RBC Morphology N CHROM Anisocytosis RARE Macrocytosis RARE Sodium 134 L Potassium 4.0 Chloride 100 Carbon Dioxide 26.0 Anion Gap 8 BUN 15 Creatinine 0.93 Estim Creat Clear Calc 75.22 Est GFR (MDRD) Af Amer 103 Est GFR (MDRD) Non-Af 85 BUN/Creatinine Ratio 16.1 Glucose 90 Calcium 8.4 L Magnesium 2.1 Troponin I High Sens 6 Radiography Diagnostic Testing: Clinical Impression(s) from Imaging Studies Chest X-Ray 01/25/21 19:00 IMPRESSION: No acute radiographic abnormalities. Electronically Signed: Chadd Hoover MD at 19:38 EDT Tel , Service support , Discharge Plan Triage Chief Complaint: Cough ED Provider: Grayson Thomas Dx/Rx/DC Orders Clinical Impression: COVID-19 Instructions: Coronavirus Disease 2019 (COVID-19): Caring for Yourself or Others Prescriptions: New dexamethasone [Decadron] 6 mg tablet 6 mg PO DAILY Qty: 10 RF: 0 No Action aspirin 81 MG tablet,chewable 81 mg PO DAILY RF: 0 omeprazole 20 MG capsule,delayed release(DR/EC) 20 mg PO DAILY RF: 0 Coricidin HBP Chest Trevor-Cough 10-200 mg Capsule 2 tab-cap PO Q6H PRN (Reason: CONGESTION/COUGH) RF: 0 amlodipine 5 mg tablet 5 mg PO DAILY RF: 0 albuterol sulfate 90 mcg/actuation Hfa Aerosol Inhaler 2 puff INHALATION Q4H PRN (Reason: SOB) RF: 0 metoprolol tartrate 25 mg tablet 25 mg PO BID RF: 0 cefdinir 300 mg Capsule 300 mg PO Q12 Qty: 12 RF: 0 prednisone 20 mg tablet 40 mg PO DAILY Qty: 14 RF: 0 albuterol sulfate 90 mcg/actuation HFA aerosol inhaler 1 inh inhalation Q6H PRN (Reason: shortness of breath or wheezing) Qty: 6.7 RF: 0 Other Ambulatory Orders: COVID Outpatient Monoclonal Antibody Referral (Routine) Timeframe: 1 Day Facility: [facility] - Location: [facility] Ordered By: Dr. Grayson Thomas Primary Care Provider: Alison Pelletier Referrals: Alison Pelletier MD [Primary Care Provider] - Disposition Disposition: Home, Self Care
[2021-01-25] MEDS: Ketorolac 30 MG/ML Syringe IV (21:00)
[2021-01-25] MEDS: DiphenhydrAMINE 50 MG/ML Syringe 25 MG IV (21:00)
[2021-01-25] MEDS: Metoclopramide 10 MG/2 ML Vial IV (21:00)
[2021-01-27 09:25] LABS: Pathologist Review Reviewed
== END 2021-01-25 21:42 | disposition home or self-care (01) ==
PROVIDERS: Emergency Provider Emergency Medicine; PCP Internal Medicine
DX: U07.1 COVID-19 (principal); I10 Essential (primary) hypertension; E78.5 Hyperlipidemia, unspecified; F32.A Depression, unspecified; I25.10 Atherosclerotic heart disease of native coronary artery without angina pectoris; K21.9 Gastro-esophageal reflux disease without esophagitis; J45.909 Unspecified asthma, uncomplicated; Z86.73 Personal history of transient ischemic attack (TIA), and cerebral infarction without residual deficits; Z79.82 Long term (current) use of aspirin; Z79.899 Other long term (current) drug therapy
CPT/HCPCS: 71045; 80048; 83735; 84484; 85025; 87426; 96361; 96374; 96375; 99282; J7030; A4216

== ENCOUNTER 2021-01-27 14:17 | Outpatient (CLI) | payer MEDICARE, SELFPAY ==
[2021-01-27 14:36] VITALS: BP 117/81; PULSE 70; RESP 16; TEMP 37.9; O2SAT 97; BMI 25.9
[2021-01-27] MEDS: 0.9% Saline Lock 10 ML Syringe IV (14:56)
[2021-01-27 16:20] VITALS: BP 153/77; PULSE 62; RESP 16; TEMP 37.1
[2021-01-27 17:15] VITALS: BP 153/77; PULSE 63; RESP 16; TEMP 37.5; O2SAT 95
== END 2021-01-27 16:20 | disposition home or self-care (01) ==
LOC: MS3OUT 14:18 → MS3 14:19
PROVIDERS: PCP Internal Medicine; Visit Provider Nurse Practitioner Adult Health
DX: Z23 Encounter for immunization (principal); U07.1 COVID-19
CPT/HCPCS: J7050; M0243; A4216; Q0244